=== PATIENT | female | born 1930 | race Caucasian/White ===

== ENCOUNTER 2017-01-18 12:07 | Emergency (ER) | payer MEDICARE, OTHER ==
[2017-01-18] MEDS ORDERED: ACETAMINOPHEN 325 MG TABLET PO ONE (13:29)
--- NOTE | 2017-01-18 13:40 | EKG REPORT ---
SEVERITY:- ABNORMAL ECG - SINUS RHYTHM LVH WITH SECONDARY REPOLARIZATION ABNORMALITY ANTERIOR Q WAVES, POSSIBLY DUE TO LVH : Confirmed by: William Carrington 18-Jan-2017 13:40:25
[2017-01-18 14:57] LABS: ABSOLUTE EOSINOPHILS # (AUTO) 0.2 10^3/uL (0.0-0.6); ABSOLUTE LYMPHOCYTES (AUTO) 1.3 10^3/uL (0.5-4.7); ABSOLUTE MONOCYTES (AUTO) 0.6 10^3/uL (0.1-1.4); BASOPHILS % (AUTO) 0.3 % (0-2); EOSINOPHILS % (AUTO) 3.3 % (0-6); HEMATOCRIT 36.9 % (36.0-47.0); HEMOGLOBIN 12.3 g/dL (12.0-15.5); LYMPHOCYTES % (AUTO) 18.6 % (13-45); MEAN CORPUSCULAR HEMOGLOBIN 33.6 pg (27.0-33.4); MEAN CORPUSCULAR HGB CONC 33.4 g/dL (32.0-36.0); MEAN CORPUSCULAR VOLUME 101 fl (80-97); MONOCYTES % (AUTO) 7.8 % (3-13); RED BLOOD COUNT 3.66 10^6/uL (3.72-5.28); RED CELL DISTRIBUTION WIDTH 15.2 % (11.5-14.0); WHITE BLOOD COUNT 7.2 10^3/uL (4.0-10.5)
[2017-01-18 15:00] LABS: APPEARANCE,URINE CLEAR; BILIRUBIN,URINE NEGATIVE (NEGATIVE); GLUCOSE, URINE NEGATIVE (NEGATIVE); KETONES,URINE NEGATIVE (NEGATIVE); LEUKOCYTE ESTERASE,URINE TRACE (NEGATIVE); NITRITE,URINE POSITIVE (NEGATIVE); PROTEIN,URINE 100 mg/dL (NEGATIVE); URINE SPECIFIC GRAVITY 1.006; UROBILINOGEN,URINE NEGATIVE mg/dL (<2.0)
[2017-01-18 15:20] LABS: ALANINE AMINOTRANSFERASE 28 U/L (9-52); ALBUMIN 3.4 g/dL (3.5-5.0); ALKALINE PHOSPHATASE 167 U/L (38-126); ANION GAP 6 (5-19); ASPARTATE AMINO TRANSFERASE 40 U/L (14-36); BILIRUBIN,DIRECT 0.6 mg/dL (0.0-0.4); BILIRUBIN,TOTAL 0.8 mg/dL (0.2-1.3); BLOOD UREA NITROGEN 20 mg/dL (7-20); CALCIUM 9.2 mg/dL (8.4-10.2); CARBON DIOXIDE 30 mmol/L (22-30); CHLORIDE 97 mmol/L (98-107); CREATININE RESULT 0.79 mg/dL (0.52-1.25); GLUCOSE 103 mg/dL (75-110); LIPASE 208.1 U/L (23-300); POTASSIUM 4.4 mmol/L (3.6-5.0); SODIUM 133.4 mmol/L (137-145); TOTAL PROTEIN 7.1 g/dL (6.3-8.2)
[2017-01-18] MEDS ORDERED: OXYCODONE-ACETAMINOPHEN 5-325 MG TABLET PO ONE (15:23)
[2017-01-18 15:39] LABS: TROPONIN I < 0.012 ng/mL
[2017-01-18] MEDS ORDERED: NITROFURANTOIN MONOHYD/M-CRYST 100 MG CAPSULE PO ONE (17:02)
--- NOTE | 2017-01-18 17:08 | ER Document Report ---
ED GI/ - General Chief Complaint: Abdominal Pain >50 Stated Complaint: ABDOMINAL/BACK PAIN Time Seen by Provider: 01/18/17 12:57 Notes: Patient is complaining of pain from her waist down to her pelvis this morning. It's much worse in the back and very little in the front of her abdomen. She says that she is able to ambulate if she doesn't slowly and doesn't try to bend over. She usually uses a walker or a cane to ambulate. Patient does not recall any recent unusual activity or any recent injury she's not had any vomiting or diarrhea. She had her most recent bowel movement this morning. She has had some burning and discomfort with urinating and going frequently and is prone to getting UTIs. She's had some cough, but very little congestion and no shortness of breath. Feels she might have a sinus infection. TRAVEL OUTSIDE OF THE [place] IN LAST 30 DAYS: No - Related Data Allergies/Adverse Reactions: ciprofloxacin [From Cipro] Allergy (Verified 01/19/13 09:33) Diarrhea ciprofloxacin HCl [From Cipro] Allergy (Verified 01/19/13 09:33) Diarrhea Sulfa (Sulfonamide Antibiotics) Allergy (Verified 01/19/13 09:33) Diarrhea sulfamethoxazole [From Septra] Allergy (Verified 01/19/13 09:34) Diarrhea trimethoprim [From Septra] Allergy (Verified 01/19/13 09:33) Diarrhea Past Medical History - Social History Smoking Status: Unknown if Ever Smoked Cigarette use (# per day): No Family History: Reviewed & Not Pertinent - Past Medical History Cardiac Medical History: Reports: Hx Hypercholesterolemia, Hx Hypertension - on meds Endocrine Medical History: Reports: Hx Diabetes Mellitus Type 2 - "borderline", Hx Hypothyroidism Malignancy Medical History: Reports: Hx Colorectal Cancer, Hx Lung Cancer GI Medical History: Reports: Hx Gastroesophageal Reflux Disease Musculoskeltal Medical History: 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 Had surgery and "cement" put in her pelvis., Other - Surgery for lung cancer. Surgery for colon cancer.. Denies: Hx Pacemaker - Immunizations Hx Diphtheria, Pertussis, Tetanus Vaccination: No Hx Pneumococcal Vaccination: 11/03/11 Review of Systems - Review of Systems Notes: REVIEW OF SYSTEMS: CONSTITUTIONAL : Denies fever. EENT: Denies eye, ear, nose or mouth or throat pain or other symptoms. CARDIOVASCULAR: Denies chest pain. RESPIRATORY: Denies cough, chest congestion, or shortness of breath. GASTROINTESTINAL: Denies abdominal pain or nausea, vomiting, or diarrhea. GENITOURINARY: Has had painful urinating, urinary frequency, but no blood in urine. MUSCULOSKELETAL: Denies back or neck pain. Denies joint pain or swelling. Patient points to the upper left buttock area as the primary location of the pain that she is experiencing and here to be seen for. SKIN: Denies rash or skin lesions. NEUROLOGICAL: Denies LOC or altered mental status. Denies headache. Denies sensory loss or motor deficits. ALL OTHER SYSTEMS REVIEWED AND NEGATIVE. Physical Exam - Vital signs Vitals: Temp Pulse Resp BP Pulse Ox 97.8 F 63 16 207/71 H 96 01/18/17 12:10 01/18/17 12:10 01/18/17 12:10 01/18/17 12:10 01/18/17 12:10 Interpretation: Hypertensive - Notes Notes: PHYSICAL EXAMINATION: GENERAL: Well-appearing, in no acute distress. HEAD: Atraumatic, normocephalic. EYES: Pupils equal round and reactive to light, extraocular movements intact. ENT: oropharynx clear without exudates. Moist mucous membranes. NECK: Normal range of motion, supple. LUNGS: Breath sounds clear and equal bilaterally. HEART: Regular rate and rhythm without murmurs. ABDOMEN: Soft, nontender. No guarding or rebound. No masses felt. No bruits heard. BACK: Patient's primary point of pain is in the superior aspect of the left buttock. EXTREMITIES: Normal range of motion without pain. NEUROLOGICAL: Normal speech, normal gait. Normal sensory, motor, and reflex exams. Awake, alert, and oriented x3. Cranial nerves normal. Patient is able to stand at the bedside and ambulate slowly without difficulty. She may appear to be slightly unsteady on her feet, but does not fall. PSYCH: Normal mood, normal affect. SKIN: Warm, dry, no rashes. Course - Re-evaluation Re-evalutation: 01/18/17 19:31 Labs are all normal except for a urinalysis which mostly patient could have a UTI. I don't think that's why she's having her pain because her pain is actually in the upper left buttock. It's not. In the flank regions where the kidneys are located. She has absolutely no pain or tenderness in the anterior portion of her body. - Vital Signs Vital signs: Temp Pulse Resp BP Pulse Ox 97.9 F 84 20 137/86 H 97 01/18/17 17:20 01/18/17 17:20 01/18/17 17:20 01/18/17 17:20 01/18/17 17:20 - Laboratory Result Diagrams: 01/18/17 14:35 01/18/17 14:35 Laboratory results interpreted by me: 01/18/17 01/18/17 01/18/17 14:12 14:35 14:35 RBC 3.66 L MCV 101 H MCH 33.6 H RDW 15.2 H Sodium 133.4 L Chloride 97 L Direct Bilirubin 0.6 H AST 40 H Alkaline Phosphatase 167 H Albumin 3.4 L Urine Protein 100 H Urine Nitrite POSITIVE H Ur Leukocyte Esterase TRACE H - Diagnostic Test Radiology reviewed: Image reviewed, Reports reviewed - CT of the abdomen and pelvis does not show any acute abnormalities. There is evidence of previous surgical procedures and apparent kyphoplasty in the pelvic region. No acute process is noted. Discharge - Discharge Clinical Impression: Back pain Qualifiers: Back pain location: low back pain Chronicity: chronic Back pain laterality: left Sciatica presence: without sciatica Qualified Code(s): M54.5 - Low back pain UTI (urinary tract infection) Qualifiers: Urinary tract infection type: site unspecified Hematuria presence: without hematuria Qualified Code(s): N39.0 - Urinary tract infection, site not specified Condition: Stable Disposition: HOME, SELF-CARE Additional Instructions: LOW BACK PAIN: Three out of every four people will have an episode of disabling back pain during their lifetime. Most commonly the pain is due to straining of the muscles and ligaments in the low back. Usual treatment includes: (1) Rest on a firm surface. Avoid lying on your stomach. (2) Ice pack the painful area. After a few days, gentle heat may be used intermittently to relax the area, or ice packs can be continued. (3) Medication may be needed -- muscle relaxers and antiinflammatory medicines are commonly used. (4) As the back improves, exercises are prescribed to strengthen the back and abdominal muscles. Your doctor will advise you on the proper care for your back at each stage in your recovery. You may be better in a few days -- or healing may take several weeks. If new symptoms of a "herniated disc" (radiation of pain, numbness, or tingling down the back of the leg or weakness in the leg) occur, you should be re-examined. Further testing may be necessary. URINARY TRACT INFECTION: Your evaluation indicates that you have a urinary tract infection. This is due to germs growing in the bladder. This is a common problem. This infection usually responds quickly to antibiotics. Your antibiotic should be taken exactly as prescribed. Drink plenty of fluids -- three to four quarts a day. Occasionally, a bladder anesthetic will be prescribed to help stop the feeling of urgency until the antibiotic has a chance to clear the infection. This may cause your urine to be dark orange. Certain urine infections require a culture. If the doctor obtained a culture, the results will be back in two days. You should call to see if a change in treatment is needed. A repeat urinalysis after you finish treatment is often recommended. The physician will let you know if further testing is required. Call the doctor if you develop fever, chills, flank pain, inability to urinate, or blood in the urine. ANTIBIOTIC THERAPY: You have been given an antibiotic prescription. It's important that you take all the medication, unless instructed otherwise by your physician. Failure to complete the entire course can result in relapse of your condition. Common side effects of antibiotics include nausea, intestinal cramping, or diarrhea. Women may develop vaginal yeast infections, and babies can get yeast (thrush) in the mouth following the use of antibiotics. Contact your physician if you develop significant side effects from this medication. Allergy to this antibiotic can result in hives, wheezing, faintness, or itching. If symptoms of allergy occur, stop the medication and call the doctor. NITROFURANTOIN (MACRODANTIN, MACROBID): You have received a prescription for nitrofurantoin (Macrodantin). This antibiotic is used for urinary tract infections. Women who are or nursing should notify the physician before taking this medicine. If you have ever had a problem caused by this medication in the past, be sure the physician is aware of it. Common side effects of this medicine include nausea, vomiting, or decreased appetite. Notify your physician if these side effects become severe. Immediately stop this medicine and call the physician if you develop cough , shortness of breath, chest pain, weakness, jaundice (yellow color of the skin and whites of the eyes), or a skin rash. You may take Aleve, ibuprofen, Motrin, etc. along with Tylenol. If that doesn' t relieve your pain, I prescribed a few Percocets for you to take for the worst pain. ORAL NARCOTIC MEDICATION: You have been given a prescription for pain control. This medication is a narcotic. It's best taken with food, as nausea can result if taken on an empty stomach. Don't operate machinery or drive within six hours of taking this medication. Do not combine this medicine with alcohol, or with any medication which can cause sedation (such as cold tablets or sleeping pills) unless you get permission from the physician. Narcotics tend to cause constipation. If possible, drink plenty of fluids and eat a diet high in fiber and fruits. FOLLOW-UP CARE: If you have been referred to a physician for follow-up care, call the physician s office for an appointment as you were instructed or within the next two days. If you experience worsening or a significant change in your symptoms, notify the physician immediately or return to the Emergency Department at any time for re-evaluation. Follow-up with your Dr. Mccarty on Saturday if you're not feeling better and improved. Return at any time to be reevaluated if you have new or worsening symptoms such as fever, abdominal pain, loss of use of either leg, etc. Prescriptions: Oxycodone HCl/Acetaminophen [Percocet 5-325 mg Tablet] 1 tab PO Q6HP PRN #10 tablet PRN Reason: Nitrofurantoin/Nitrofuran Mac [Macrobid 100 mg Capsule] 1 tab PO BID #14 capsule Referrals: JUVENTINO MCCARTY MD [Primary Care Provider] - Follow up as needed
[2017-01-18 19:24] VITALS: BP 137/86
== END 2017-01-18 17:20 | disposition home or self-care (01) ==
LOC: ER 12:07
DX: N39.0 Urinary tract infection, site not specified (principal); M54.5 Low back pain; M25.552 Pain in left hip; R30.0 Dysuria; R35.0 Frequency of micturition; I10 Essential (primary) hypertension; Z88.1 Allergy status to other antibiotic agents; Z88.2 Allergy status to sulfonamides
CPT/HCPCS: 93005; 99285; 36415; 87086; 82553; 83690; 85025; 87088; 80053; 81001; 84484; 87186; 71020; 74176; 93010; A9270 ×3; J8499

== ENCOUNTER 2017-01-20 22:33 | Emergency (ER) | payer MEDICARE, OTHER ==
[2017-01-20] MEDS ORDERED: MORPHINE SULFATE 10 MG/ML INJ IV ONE (23:58)
--- NOTE | 2017-01-20 23:59 | ER Document Report ---
ED GI/ - General Chief Complaint: Flank Pain Stated Complaint: BACK PAIN,FLANK PAIN Time Seen by Provider: 01/20/17 23:39 Notes: Patient is an 86-year-old female that comes emergency department for chief complaint of pain in her lower back. He was evaluated for this 2 days ago, provided with Bactrim antibiotic and pain medication, she states that she was feeling better yesterday but today started feeling worse again and now has sharp pains in her lower back on both sides. She denies fever, vomiting, chills , difficulty breathing, cough, fall injury, or other acute abnormality. Past medical history of hypertension, hyperlipidemia, type II diabetes, hypothyroidism. She lives at home with her son. TRAVEL OUTSIDE OF THE [place] IN LAST 30 DAYS: No - Related Data Allergies/Adverse Reactions: ciprofloxacin [From Cipro] Allergy (Verified 01/20/17 23:15) Diarrhea ciprofloxacin HCl [From Cipro] Allergy (Verified 01/20/17 23:15) Diarrhea Sulfa (Sulfonamide Antibiotics) Allergy (Verified 01/20/17 23:15) Diarrhea sulfamethoxazole [From Septra] Allergy (Verified 01/20/17 23:15) Diarrhea trimethoprim [From Septra] Allergy (Verified 01/20/17 23:15) Diarrhea Past Medical History - General Information source: Patient - Social History Smoking Status: Never Smoker Frequency of alcohol use: None Drug Abuse: None Lives with: Family Family History: Reviewed & Not Pertinent Patient has suicidal ideation: No Patient has homicidal ideation: No - Past Medical History Cardiac Medical History: Reports: Hx Hypercholesterolemia, Hx Hypertension - on meds Denies: Hx Coronary Artery Disease, Hx Heart Attack Pulmonary Medical History: Denies: Hx Asthma, Hx Bronchitis, Hx COPD, Hx Pneumonia, Hx Tuberculosis Neurological Medical History: Denies: Hx Cerebrovascular Accident, Hx Seizures Endocrine Medical History: Reports: Hx Diabetes Mellitus Type 2 - "borderline", Hx Hypothyroidism Renal/ Medical History: Denies: Hx Peritoneal Dialysis Malignancy Medical History: Reports: Hx Colorectal Cancer, Hx Lung Cancer GI Medical History: Reports: Hx Gastroesophageal Reflux Disease Musculoskeltal Medical History: 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 Had surgery and "cement" put in her pelvis., Other - Surgery for lung cancer. Surgery for colon cancer.. Denies: Hx Pacemaker - Immunizations Hx Diphtheria, Pertussis, Tetanus Vaccination: No Hx Pneumococcal Vaccination: 11/03/11 Review of Systems - Review of Systems Constitutional: No symptoms reported EENT: No symptoms reported Cardiovascular: No symptoms reported Respiratory: No symptoms reported Gastrointestinal: See HPI Genitourinary: See HPI Female Genitourinary: No symptoms reported Musculoskeletal: See HPI Skin: No symptoms reported Hematologic/Lymphatic: No symptoms reported Neurological/Psychological: No symptoms reported Physical Exam - Vital signs Vitals: Temp Pulse Resp BP Pulse Ox 97.6 F 58 L 16 136/66 H 92 01/20/17 23:14 01/20/17 23:14 01/20/17 23:14 01/20/17 23:14 01/20/17 23:14 Interpretation: Normal - General General appearance: Appears well In distress: None - Patient alert and well-appearing - HEENT Head: Normocephalic, Atraumatic Eyes: Normal Pupils: PERRL - Respiratory Respiratory status: No respiratory distress Chest status: Nontender Breath sounds: Normal Chest palpation: Normal - Cardiovascular Rhythm: Regular Heart sounds: Normal auscultation, S1 appreciated, S2 appreciated Murmur: Yes - Abdominal Inspection: Normal Distension: No distension Bowel sounds: Normal Tenderness: Nontender. No: Tender - No abdominal tenderness noted on my exam Organomegaly: No organomegaly - Back Back: Tender - Very mild generalized lower lumbar tenderness, no midline tenderness, patient ambulates without significant difficulty, normal distal neurovascular exam. No: CVA tenderness - No CVA tenderness - Extremities General upper extremity: Normal inspection, Nontender, Normal color, Normal ROM , Normal temperature General lower extremity: Normal inspection, Nontender, Normal color, Normal ROM , Normal temperature, Normal weight bearing. No: Mario Alberto's sign - Neurological Neuro grossly intact: Yes Cognition: Normal Orientation: AAOx4 [place] Coma Scale Eye Opening: Spontaneous Ai Coma Scale Verbal: Oriented Ai Coma Scale Motor: Obeys Commands [place] Coma Scale Total: 15 Speech: Normal Motor strength normal: LUE, RUE, LLE, RLE Sensory: Normal - Psychological Associated symptoms: Normal affect, Normal mood - Skin Skin Temperature: Warm Skin Moisture: Dry Skin Color: Normal Course - Re-evaluation Re-evalutation: Patient had an unremarkable CAT scan within the past 48 hours. Urinalysis shows worsening urinary tract infection despite patient taking Macrobid. No leukocytosis, no fever, no hypotension or tachycardia. Patient is well appearing on exam. Given a dose of Rocephin. Starting on Keflex, another urine culture placed. Mild hyponatremia, patient was given some normal saline while she was here. No dizziness, no current symptoms on reevaluation. Discussed with patient and son, they state that they will follow-up with both primary care and ask for urology referral, discussed return precautions in detail, patient states she is ready to go home. Patient and son state understanding and agreement with plan. - Vital Signs Vital signs: Temp Pulse Resp BP Pulse Ox 98.2 F 62 16 132/74 H 94 01/21/17 04:10 01/21/17 04:10 01/21/17 04:10 01/21/17 04:10 01/21/17 04:10 - Laboratory Result Diagrams: 01/21/17 00:34 01/21/17 00:34 Laboratory results interpreted by me: 01/21/17 01/21/17 01/21/17 00:10 00:34 00:34 RBC 3.69 L MCV 98 H MCH 33.7 H RDW 14.9 H Seg Neutrophils % 79.9 H Lymphocytes % 10.2 L Sodium 128.0 L Chloride 91 L BUN 25 H Glucose 122 H Direct Bilirubin 0.5 H Alkaline Phosphatase 142 H Albumin 3.4 L Urine Protein >=500 H Urine Nitrite POSITIVE H Ur Leukocyte Esterase LARGE H Urine Ascorbic Acid 40 H Discharge - Discharge Clinical Impression: Flank pain, Urinary tract infection Condition: Stable Disposition: HOME, SELF-CARE Additional Instructions: Your urinary tract infection has worsened, you have been given a dose of Rocephin tonight, please take the Keflex antibiotics instead of the current Macrobid antibiotic, take to completion. Please follow-up with your primary care this week for recheck. Your sodium level was slightly low today, this has also been treated today, have this rechecked as well. Return immediately if you worsen in anyway including vomiting, fever, worsening pain, or any other concerning symptoms. Prescriptions: Cephalexin Monohydrate [Keflex 500 mg Capsule] 500 mg PO BID #14 capsule Referrals: JUVENTINO MCCARTY MD [Primary Care Provider] - Follow up as needed
[2017-01-21 00:40] LABS: APPEARANCE,URINE SLIGHTLY-CLOUDY; BILIRUBIN,URINE NEGATIVE (NEGATIVE); GLUCOSE, URINE NEGATIVE (NEGATIVE); KETONES,URINE NEGATIVE (NEGATIVE); LEUKOCYTE ESTERASE,URINE LARGE (NEGATIVE); NITRITE,URINE POSITIVE (NEGATIVE); PROTEIN,URINE >=500 mg/dL (NEGATIVE); URINE SPECIFIC GRAVITY 1.011; UROBILINOGEN,URINE NEGATIVE mg/dL (<2.0)
[2017-01-21] MEDS ORDERED: CEFTRIAXONE 1 GM/D5W RTU 50 ML IV ONE (00:44)
[2017-01-21 00:46] LABS: ABSOLUTE EOSINOPHILS # (AUTO) 0.1 10^3/uL (0.0-0.6); ABSOLUTE LYMPHOCYTES (AUTO) 0.8 10^3/uL (0.5-4.7); ABSOLUTE MONOCYTES (AUTO) 0.7 10^3/uL (0.1-1.4); ABSOLUTE NEUT (AUTO) 6.6 10^3/uL (1.7-8.2); BASOPHILS % (AUTO) 0.3 % (0-2); EOSINOPHILS % (AUTO) 0.8 % (0-6); HEMATOCRIT 36.3 % (36.0-47.0); HEMOGLOBIN 12.4 g/dL (12.0-15.5); HGB HCT DIFFERENCE 0.9; LYMPHOCYTES % (AUTO) 10.2 % (13-45); MEAN CORPUSCULAR HEMOGLOBIN 33.7 pg (27.0-33.4); MEAN CORPUSCULAR HGB CONC 34.2 g/dL (32.0-36.0); MEAN CORPUSCULAR VOLUME 98 fl (80-97); MONOCYTES % (AUTO) 8.8 % (3-13); RED BLOOD COUNT 3.69 10^6/uL (3.72-5.28); RED CELL DISTRIBUTION WIDTH 14.9 % (11.5-14.0); SEGMENTED NEUTROPHILS % (AUTO) 79.9 % (42-78); WHITE BLOOD COUNT 8.3 10^3/uL (4.0-10.5)
[2017-01-21 01:05] LABS: ALANINE AMINOTRANSFERASE 31 U/L (9-52); ALBUMIN 3.4 g/dL (3.5-5.0); ALKALINE PHOSPHATASE 142 U/L (38-126); ANION GAP 8 (5-19); ASPARTATE AMINO TRANSFERASE 36 U/L (14-36); BILIRUBIN,DIRECT 0.5 mg/dL (0.0-0.4); BILIRUBIN,TOTAL 0.8 mg/dL (0.2-1.3); BLOOD UREA NITROGEN 25 mg/dL (7-20); CALCIUM 9.5 mg/dL (8.4-10.2); CARBON DIOXIDE 29 mmol/L (22-30); CHLORIDE 91 mmol/L (98-107); CREATININE RESULT 0.86 mg/dL (0.52-1.25); GLUCOSE 122 mg/dL (75-110); POTASSIUM 4.4 mmol/L (3.6-5.0); TOTAL PROTEIN 6.9 g/dL (6.3-8.2)
[2017-01-21] MEDS ORDERED: NORMAL SALINE 1000 ML 500 ML IV ONE (01:14)
[2017-01-21 04:51] VITALS: BP 132/74
== END 2017-01-21 04:10 | disposition home or self-care (01) ==
LOC: ER 22:33
DX: N39.0 Urinary tract infection, site not specified (principal); M54.5 Low back pain; E87.1 Hypo-osmolality and hyponatremia; I10 Essential (primary) hypertension; E11.9 Type 2 diabetes mellitus without complications; Z88.1 Allergy status to other antibiotic agents; Z88.2 Allergy status to sulfonamides; Z85.048 Personal history of other malignant neoplasm of rectum, rectosigmoid junction, and anus; Z85.118 Personal history of other malignant neoplasm of bronchus and lung
CPT/HCPCS: 99284; 96375; 96365; 36415; 87086; 85025; 87088; 80053; 81001; 87186; J2270; J7030; J0696

== ENCOUNTER 2017-01-23 17:06 | Emergency (ER) | payer MEDICARE, OTHER ==
[2017-01-24 13:59] LABS: APPEARANCE,URINE SLIGHTLY-CLOUDY; BILIRUBIN,URINE NEGATIVE (NEGATIVE); GLUCOSE, URINE NEGATIVE (NEGATIVE); KETONES,URINE NEGATIVE (NEGATIVE); LEUKOCYTE ESTERASE,URINE LARGE (NEGATIVE); NITRITE,URINE NEGATIVE (NEGATIVE); PROTEIN,URINE 100 mg/dL (NEGATIVE); URINE SPECIFIC GRAVITY 1.008; UROBILINOGEN,URINE NEGATIVE mg/dL (<2.0)
== END 2017-01-23 19:19 | disposition left against medical advice (07) ==
LOC: ER 17:06
DX: Z53.21 Procedure and treatment not carried out due to patient leaving prior to being seen by health care provider (principal)
CPT/HCPCS: 81001

== ENCOUNTER 2017-01-28 06:44 | Emergency (ER) | payer MEDICARE, OTHER ==
[2017-01-28 07:31] LABS: ABSOLUTE EOSINOPHILS # (AUTO) 0.2 10^3/uL (0.0-0.6); ABSOLUTE LYMPHOCYTES (AUTO) 0.6 10^3/uL (0.5-4.7); ABSOLUTE NEUT (AUTO) 5.8 10^3/uL (1.7-8.2); BASOPHILS % (AUTO) 0.3 % (0-2); EOSINOPHILS % (AUTO) 2.5 % (0-6); HEMATOCRIT 36.2 % (36.0-47.0); HEMOGLOBIN 12.2 g/dL (12.0-15.5); HGB HCT DIFFERENCE 0.4; LYMPHOCYTES % (AUTO) 8.4 % (13-45); MEAN CORPUSCULAR HEMOGLOBIN 33.7 pg (27.0-33.4); MEAN CORPUSCULAR HGB CONC 33.8 g/dL (32.0-36.0); MEAN CORPUSCULAR VOLUME 100 fl (80-97); MONOCYTES % (AUTO) 13.1 % (3-13); RED BLOOD COUNT 3.63 10^6/uL (3.72-5.28); RED CELL DISTRIBUTION WIDTH 14.8 % (11.5-14.0); SEGMENTED NEUTROPHILS % (AUTO) 75.7 % (42-78); WHITE BLOOD COUNT 7.7 10^3/uL (4.0-10.5)
[2017-01-28] MEDS ORDERED: HYDROCODONE/ACETAMINOPHEN 5-325 MG TABLET PO ONE (07:31)
[2017-01-28 07:44] LABS: ALANINE AMINOTRANSFERASE 29 U/L (9-52); ALBUMIN 3.2 g/dL (3.5-5.0); ALKALINE PHOSPHATASE 148 U/L (38-126); ANION GAP 6 (5-19); ASPARTATE AMINO TRANSFERASE 36 U/L (14-36); BILIRUBIN,DIRECT 0.5 mg/dL (0.0-0.4); BILIRUBIN,TOTAL 0.7 mg/dL (0.2-1.3); BLOOD UREA NITROGEN 20 mg/dL (7-20); CALCIUM 9.1 mg/dL (8.4-10.2); CARBON DIOXIDE 31 mmol/L (22-30); CHLORIDE 93 mmol/L (98-107); CREATININE RESULT 0.89 mg/dL (0.52-1.25); GLUCOSE 109 mg/dL (75-110); POTASSIUM 4.7 mmol/L (3.6-5.0); TOTAL PROTEIN 6.6 g/dL (6.3-8.2)
--- NOTE | 2017-01-28 08:08 | ER Document Report ---
ED General - General Chief Complaint: Low Back Pain Stated Complaint: LOWER BACK PAIN Time Seen by Provider: 01/28/17 06:46 Mode of Arrival: Ambulatory Information source: Patient Notes: 86-year-old female with history of multiple visits in the past 2 weeks for low back pain presents with complaints of low back pain. Family notes that her back pain in the past 2 weeks has been related to a urinary tract infection which has been treated with multiple antibiotics and appeared to have been under control, however yesterday patient bent over to moss picker a heavy calculator and her back pain started again. Patient notes it is in the lumbar region is tender to palpation hurts with movement. Denies any neurological deficits. Denies any abdominal pain TRAVEL OUTSIDE OF THE [place] IN LAST 30 DAYS: No - HPI Onset: Yesterday Onset/Duration: Sudden Quality of pain: Achy Severity: Mild Pain Level: 1 Associated symptoms: Body/muscle aches Exacerbated by: Movement Relieved by: Denies Similar symptoms previously: Yes Recently seen / treated by doctor: Yes - Related Data Allergies/Adverse Reactions: ciprofloxacin [From Cipro] Allergy (Verified 01/20/17 23:15) Diarrhea ciprofloxacin HCl [From Cipro] Allergy (Verified 01/20/17 23:15) Diarrhea Sulfa (Sulfonamide Antibiotics) Allergy (Verified 01/20/17 23:15) Diarrhea sulfamethoxazole [From Septra] Allergy (Verified 01/20/17 23:15) Diarrhea trimethoprim [From Septra] Allergy (Verified 01/20/17 23:15) Diarrhea Past Medical History - Social History Smoking Status: Never Smoker Cigarette use (# per day): No Chew tobacco use (# tins/day): No Smoking Education Provided: No Frequency of alcohol use: None Drug Abuse: None Family History: Reviewed & Not Pertinent - Past Medical History Cardiac Medical History: Reports: Hx Hypercholesterolemia, Hx Hypertension - on meds Denies: Hx Coronary Artery Disease, Hx Heart Attack Pulmonary Medical History: Denies: Hx Asthma, Hx Bronchitis, Hx COPD, Hx Pneumonia, Hx Tuberculosis Neurological Medical History: Denies: Hx Cerebrovascular Accident, Hx Seizures Endocrine Medical History: Reports: Hx Diabetes Mellitus Type 2 - "borderline", Hx Hypothyroidism Renal/ Medical History: Denies: Hx Peritoneal Dialysis Malignancy Medical History: Reports: Hx Colorectal Cancer, Hx Lung Cancer GI Medical History: Reports: Hx Gastroesophageal Reflux Disease Musculoskeltal Medical History: 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 Had surgery and "cement" put in her pelvis., Other - Surgery for lung cancer. Surgery for colon cancer.. Denies: Hx Pacemaker - Immunizations Hx Diphtheria, Pertussis, Tetanus Vaccination: No Hx Pneumococcal Vaccination: 11/03/11 Review of Systems - Review of Systems Notes: PHYSICAL EXAMINATION: GENERAL: Well-appearing, well-nourished and in no acute distress. HEAD: Atraumatic, normocephalic. EYES: Pupils equal round and reactive to light, extraocular movements intact, conjunctiva are normal. ENT: Nares patent, oropharynx clear without exudates. Moist mucous membranes. NECK: Normal range of motion, supple without lymphadenopathy LUNGS: Breath sounds clear to auscultation bilaterally and equal. No wheezes rales or rhonchi. HEART: Regular rate and rhythm without murmurs ABDOMEN: Soft, nontender, nondistended abdomen. No guarding, no rebound. No masses appreciated. Female : deferred Musculoskeletal: Limited range of motion secondary to pain, tenderness in the L2 to L3 region no deformity NEUROLOGICAL: Cranial nerves grossly intact. Normal speech, normal gait. Normal sensory, motor exams PSYCH: Normal mood, normal affect. SKIN: Warm, Dry, normal turgor, no rashes or lesions noted. Physical Exam - Vital signs Vitals: Temp Pulse Resp BP Pulse Ox 97.5 F 57 L 16 167/85 H 95 01/28/17 06:58 01/28/17 06:58 01/28/17 06:58 01/28/17 06:58 01/28/17 06:58 Course - Re-evaluation Re-evalutation: 01/28/17 08:08 I do not expect any life-threatening issues given the chronicity of pain exacerbated with movement, CT has been ordered to rule out a dissection or fracture No cauda equina concerns noted by patient 01/28/17 09:26 CT is consistent with a L1 wedge fracture, this would explain the patient's pain the family. They will follow-up with the previous orthopedic surgeon who did her previous kyphoplasty After performing a Medical Screening Examination, I estimate there is LOW risk for EXPANDING OR RUPTURED ABDOMINAL AORTIC ANEURYSM, CAUDA EQUINA SYNDROME, EPIDURAL MASS LESION, or HERNIATED DISK CAUSING SEVERE SPINAL STENOSIS, thus I consider the discharge disposition reasonable. I have reevaluated this patient multiple times and no significant life threatening changes are noted. The patient and I have discussed the diagnosis and risks, and we agree with discharging home and close follow-up. We also discussed returning to the Emergency Department immediately if new or worsening symptoms occur with the understanding that symptoms and presentations can change. We have discussed the symptoms which are most concerning (e.g., saddle anesthesia, urinary or bowel incontinence or retention, changing or worsening pain) that necessitate immediate return. - Vital Signs Vital signs: Temp Pulse Resp BP Pulse Ox 97.5 F 57 L 16 167/85 H 95 01/28/17 06:58 01/28/17 06:58 01/28/17 06:58 01/28/17 06:58 01/28/17 06:58 - Laboratory Result Diagrams: 01/28/17 07:16 01/28/17 07:16 Laboratory results interpreted by me: 01/28/17 01/28/17 07:16 07:16 RBC 3.63 L MCV 100 H MCH 33.7 H RDW 14.8 H Lymphocytes % 8.4 L Monocytes % 13.1 H Sodium 130.0 L Chloride 93 L Carbon Dioxide 31 H Direct Bilirubin 0.5 H Alkaline Phosphatase 148 H Albumin 3.2 L - Diagnostic Test Radiology reviewed: Image reviewed, Reports reviewed - L1 compression fracture Discharge - Discharge Clinical Impression: Compression fracture of L1 lumbar vertebra Qualifiers: Encounter type: initial encounter Fracture type: closed Qualified Code(s): S32.010A - Wedge compression fracture of first lumbar vertebra, initial encounter for closed fracture Back pain Qualifiers: Back pain location: low back pain Chronicity: acute Back pain laterality: midline Sciatica presence: without sciatica Qualified Code(s): M54.5 - Low back pain Condition: Stable Disposition: HOME, SELF-CARE Instructions: Compression Fracture of the Spine ([facility]) Additional Instructions: Follow up with your physician tomorrow for further care or return to the ED IMMEDIATELY if symptoms worsen or new concerns occur. If you cannot afford to follow up with your primary care physician a list of low cost clinics have been provided at the end of your discharge papers as well. Prescriptions: Oxycodone HCl/Acetaminophen [Percocet 10-325 Mg Tablet] 1 each PO Q6 #30 tablet
[2017-01-28] MEDS ORDERED: OXYCODONE-ACETAMINOPHEN 5-325 MG TABLET PO ONE (09:26)
[2017-01-28 09:37] LABS: APPEARANCE,URINE CLEAR; BILIRUBIN,URINE NEGATIVE (NEGATIVE); GLUCOSE, URINE NEGATIVE (NEGATIVE); KETONES,URINE NEGATIVE (NEGATIVE); LEUKOCYTE ESTERASE,URINE LARGE (NEGATIVE); NITRITE,URINE NEGATIVE (NEGATIVE); PROTEIN,URINE 100 mg/dL (NEGATIVE); UROBILINOGEN,URINE NEGATIVE mg/dL (<2.0)
[2017-01-28 09:39] LABS: URINE SPECIFIC GRAVITY 1.003
[2017-01-28 09:58] VITALS: BP 208/86
== END 2017-01-28 09:50 | disposition home or self-care (01) ==
LOC: ER 06:44
DX: S32.010A Wedge compression fracture of first lumbar vertebra, initial encounter for closed fracture (principal); X50.0XXA Overexertion from strenuous movement or load, initial encounter; I10 Essential (primary) hypertension; Z85.118 Personal history of other malignant neoplasm of bronchus and lung; Z85.048 Personal history of other malignant neoplasm of rectum, rectosigmoid junction, and anus; Z88.2 Allergy status to sulfonamides; Z88.1 Allergy status to other antibiotic agents
CPT/HCPCS: 99284; 36415; 87086; 85025; 87088; 80053; 81001; 74177; A9270 ×2; 87186

== ENCOUNTER → 2017-02-02 | Outpatient (CLI) | payer MEDICARE, OTHER ==
--- NOTE | 2017-02-02 17:20 | RADIOLOGY REPORT (SQ) ---
EXAM DESCRIPTION: MRI LUMBAR SPINE WITHOUT COMPLETED DATE/TIME: 02/02/2017 9:27 am REASON FOR STUDY: WEDGE COMPRESSION FRACTURE OF FIRST LUMBAR VERTEBRA S32.010A WEDGE COMPRESSION FR ACTURE OF FIRST LUMBAR VERTEBRA COMPARISON: Lumbar spine films 03/23/2016 CT lumbar spine 03/30/2016 CT abdomen pelvis 01/18/2017 CT abdomen pelvis 01/28/2017 TECHNIQUE: Sagittal and Axial imaging includes T1, T2, STIR and gradient echo sequences. Coronal T2/ HASTE imaging. LIMITATIONS: None. FINDINGS: VISUALIZED UPPER ABDOMEN: Limited evaluation. No acute or suspicious findings suggested. SEGMENTATION: No transitional anatomy. The lowest well-developed disc space is labeled L5-S1. ALIGNMENT: Mild grade 1 anterolisthesis of L4 over L5 VERTEBRAE: Greater than 50% loss of height at L1. BONE MARROW: Mild marrow edema in the L1 vertebral body DISC SIGNAL: Diffuse decreased T2 weighted intervertebral disc signal POSTERIOR ELEMENTS: Generally intact. No pars defect evident. HARDWARE: None in the spine. CORD AND CONUS: Normal in size and signal intensity. Conus at the mid L1 level. SOFT TISSUES: No aortic aneurysm seen. No bulky retroperitoneal adenopathy or mass. No paraspinal mas s or fluid. T10-11: At the upper edge of the field of view. No central or foraminal stenosis. Moderate facet h ypertrophy. T11-12: No central or foraminal stenosis. Mild posterior disc bulging, moderate bilateral facet hyp ertrophy. T12-L1: No central or foraminal encroachment. Mild posterior disc bulging. Mild bilateral facet an d ligament hypertrophy. L1-L2: Greater than 50% compression deformity at L1. Mild retropulsion of the posterosuperior corner of L1. Minimal posterior disc bulging and mild bilateral facet hypertrophy. There is borderline ce ntral canal narrowing. Moderate bilateral foraminal narrowing with partial effacement of the fat naeem und the exiting L1 nerve roots bilaterally. L2-L3: Mild diffuse posterior disc bulging, bulky bilateral facet and ligament hypertrophy. Borderli ne central canal narrowing best shown on axial T2 image 20. There is mild bilateral inferior foramin al narrowing without exiting L2 nerve root impingement. L3-L4: Mild diffuse posterior disc bulging and bulky bilateral facet and ligament hypertrophy cause m ild central canal stenosis, best shown on axial T2 image 26. There is moderate right and mild left f oraminal narrowing without exiting L3 nerve root impingement. L4-L5: Grade 1 anterolisthesis of L4 over L5, broad diffuse posterior disc bulging and very bulky becca ateral facet and ligament hypertrophy cause moderate central canal stenosis at L4-5. There is asymme tric flattening of the thecal sac at the takeoff of the left L5 nerve root in the lateral recess best shown on axial T2 image 32. Mild right, moderate left foraminal narrowing without definite exiting L4 nerve root impingement. L5-S1: Mild posterior disc bulging, moderate facet hypertrophy. No central or foraminal stenosis. SACRUM: Old bilateral sacroplasty, with bone cement present. OTHER: No other significant findings. IMPRESSION: Subacute L1 greater than 50% compression deformity Multilevel central and foraminal narrowing as above. TECHNICAL DOCUMENTATION: JOB ID: [id number] [employer]- All Rights Reserved
== END ==
LOC: RAD 08:00
PROVIDERS: ATTEND Student in an Organized Health Care Education/Training Program
DX: S32.010A Wedge compression fracture of first lumbar vertebra, initial encounter for closed fracture (principal); X58.XXXA Exposure to other specified factors, initial encounter
CPT/HCPCS: 72148

== ENCOUNTER → 2017-02-12 | Day surgery (SDC) | payer MEDICARE, OTHER ==
[2017-02-08 12:29] LABS: HEMATOCRIT 36.6 % (36.0-47.0); HEMOGLOBIN 12.3 g/dL (12.0-15.5); HGB HCT DIFFERENCE 0.3; MEAN CORPUSCULAR HEMOGLOBIN 33.6 pg (27.0-33.4); MEAN CORPUSCULAR HGB CONC 33.5 g/dL (32.0-36.0); MEAN CORPUSCULAR VOLUME 100 fl (80-97); PROTHROMBIN TIME 13.8 SEC (11.4-15.4); RED BLOOD COUNT 3.65 10^6/uL (3.72-5.28); RED CELL DISTRIBUTION WIDTH 15.3 % (11.5-14.0); WHITE BLOOD COUNT 7.5 10^3/uL (4.0-10.5)
--- NOTE | 2017-02-08 17:04 | EKG REPORT ---
SEVERITY:- ABNORMAL ECG - SINUS RHYTHM LEFT ANTERIOR FASCICULAR BLOCK LVH WITH SECONDARY REPOLARIZATION ABNORMALITY ANTERIOR INFARCT, AGE INDETERMINATE : Confirmed by: William Carrington 08-Feb-2017 17:03:20
[2017-02-09 12:26] LABS: APPEARANCE,URINE CLOUDY; BILIRUBIN,URINE NEGATIVE (NEGATIVE); GLUCOSE, URINE NEGATIVE (NEGATIVE); KETONES,URINE NEGATIVE (NEGATIVE); LEUKOCYTE ESTERASE,URINE LARGE (NEGATIVE); NITRITE,URINE POSITIVE (NEGATIVE); PROTEIN,URINE 100 mg/dL (NEGATIVE); UROBILINOGEN,URINE NEGATIVE mg/dL (<2.0)
[~2017-02-12] MED LIST: CEFAZOLIN 1 GM/D5W RTU 1 GM/50 ML RTUPB IV PRN; DEXMEDETOMIDINE INJ 80 MCG/20 ML VIAL IV ONE; DIPHENHYDRAMINE HCL 50 MG/ML VIAL IV PRN; FENTANYL CITRATE INJ/PF 100 MCG/2 ML AMPUL IV PRN; FENTANYL CITRATE INJ/PF 100 MCG/2 ML AMPUL ONE; KETAMINE HCL INJ 500 MG/10 ML VIAL ONE; LACTATED RINGERS 1000 ML IV PRN; LIDOCAINE 0.5% INJ-PF (5 MG/ML) 50 ML SDV SUBCUT PRN; LIDOCAINE 1% INJ-PF (10 MG/ML) 30 ML SDV ONE; MIDAZOLAM 2 MG/2 ML INJ ONE; ONDANSETRON HCL INJ/PF 4 MG/2 ML SDV IV PRN; OXYCODONE-ACETAMINOPHEN 5-325 MG TABLET PO PRN; PROPOFOL INJ 200 MG/20 ML VIAL IV ONE
[2017-02-12 06:18] VITALS: BP 176/87
[2017-02-12 08:04] LABS: APPEARANCE,URINE SLIGHTLY-CLOUDY; BILIRUBIN,URINE NEGATIVE (NEGATIVE); GLUCOSE, URINE NEGATIVE (NEGATIVE); KETONES,URINE NEGATIVE (NEGATIVE); LEUKOCYTE ESTERASE,URINE LARGE (NEGATIVE); NITRITE,URINE POSITIVE (NEGATIVE); PROTEIN,URINE 100 mg/dL (NEGATIVE); URINE SPECIFIC GRAVITY 1.006; UROBILINOGEN,URINE NEGATIVE mg/dL (<2.0)
== END ==
LOC: OROUT 05:42
PROVIDERS: ATTEND Pain Medicine Interventional Pain Medicine
DX: S32.010A Wedge compression fracture of first lumbar vertebra, initial encounter for closed fracture (principal); X58.XXXA Exposure to other specified factors, initial encounter; Z79.01 Long term (current) use of anticoagulants; Z88.1 Allergy status to other antibiotic agents
CPT/HCPCS: 93005; 36415; 87086; 82962; 85027; 85610; 85730; 81001 ×2; 93010; J0690; J2250; J2704; J3010; J3490

== ENCOUNTER 2017-02-14 09:42 | Inpatient (IN) | payer MEDICARE, OTHER ==
[2017-02-14] MEDS ORDERED: LEVALBUTEROL HCL NEB 0.63 MG/3 ML AMPUL NEB PRN (10:52)
[2017-02-14] MEDS ORDERED: NORMAL SALINE 1000 ML 1,000 ML IV PRN (10:52)
[2017-02-14] MEDS ORDERED: ONDANSETRON HCL INJ/PF 4 MG/2 ML SDV IV PRN (10:52)
[2017-02-14] MEDS ORDERED: DEXTROSE 50%-WATER SYRINGE 12.5 GM/25 ML DOSE IV PRN (10:56)
[2017-02-14] MEDS ORDERED: GLUCAGON,HUMAN RECOMB 1 MG INJ IM PRN (10:56)
[2017-02-14] MEDS ORDERED: DEXTROSE 40% GEL 15 GM TUBE X 2 PO PRN (10:56)
[2017-02-14] MEDS ORDERED: INSULIN LISPRO 100 UNIT/ML 3 ML VIAL SUBCUT PRN (10:56)
[2017-02-14] MEDS ORDERED: DEXTROSE 50%-WATER SYRINGE 25 GM/50 ML DOSE IV PRN (10:56)
[2017-02-14] MEDS ORDERED: DEXTROSE 40% GEL 15 GM TUBE PO PRN (10:56)
--- NOTE | 2017-02-14 11:18 | PDOC H&P ---
History of Present Illness Admission Date/PCP: 02/14/17 09:42 JUVENTINO MCCARTY MD Patient complains of: Persistent urinary tract infections and nausea and vomiting History of Present Illness: BRITTNEY SANDERS is a 87 year old female This is a 87-year-old female female with a history of the adenocarcinoma of the colon and a non-small carcinoma of the lung currently see a Dr. Schwartz and a polyps will every 6 month and also patient have a significant history of the sinus problems and currently saw the ENT recently have a compression fractures of the vertebra and currently see up Dr. Jaime unable to get the kyphoplasty because of the persistent infections in the urine.Patient was put on the Levaquin recently and patients complaining some nausea vomiting and not feeling wellIn patients back and forth by her son to brought to the office and at this point because of the weakness nausea vomiting and persistent infection and uncontrolled pain decided to admit in the hospital and the both patient and the son agree Patients denied any chest pain denied any shortness of the breath Past Medical History Cardiac Medical History: Reports: Hyperlipidema, Hypertension - on meds Denies: Coronary Artery Disease, Myocardial Infarction Pulmonary Medical History: Denies: Asthma, Bronchitis, Chronic Obstructive Pulmonary Disease (COPD), Pneumonia, Tuberculosis Neurological Medical History: Denies: Seizures Endocrine Medical History: Reports: Diabetes Mellitus Type 2 - "borderline", Hypothyroidism Malignancy Medical History: Reports: Colorectal Cancer, Lung Cancer GI Medical History: Reports: Gastroesophageal Reflux Disease Musculoskeltal Medical History: Reports: Arthritis - pelvis, Gout Psychiatric Medical History: Reports: Dementia Hematology: Reports: Anemia - hx of Past Surgical History Past Surgical History: Reports: Appendectomy, Cardiac Catheterization, Cholecystectomy, Hysterectomy, Orthopedic Surgery - PELVIC FX about 6 years ago. Had surgery and "cement" put in her pelvis., Other - Surgery for lung cancer. Surgery for colon cancer. Denies: Pacemaker Social History Smoking Status: Former Smoker Frequency of Alcohol Use: None Hx Recreational Drug Use: No Hx Prescription Drug Abuse: No Family History Family History: Reviewed & Not Pertinent Parental Family History Reviewed: Yes Children Family History Reviewed: Yes Sibling(s) Family History Reviewed.: Yes Medication/Allergy Home Medications: Esomeprazole Magnesium [Nexium] 40 mg PO DAILY 10/04/12 Levothyroxine Sodium [Synthroid 0.075 mg Tablet] 50 mcg PO DAILY 10/04/12 Metoprolol Tartrate [Lopressor 50 mg Tablet] 50 mg PO Q12H 10/04/12 Multivitamin [Multiple Vitamins] 1 each PO DAILY 10/04/12 [place]-3/Dha/Epa/Fish Oil [Fish Oil [place]okato-3 Softgel] 1 each PO DAILY 10/04/12 Pramipexole Di-HCl [Mirapex 0.25 mg Tablet] 0.5 mg PO BID 10/04/12 Rosuvastatin Calcium [Crestor 10 mg Tablet] 10 mg PO QHS 10/04/12 Sitagliptin Phosphate [Januvia 25 mg Tablet] 25 mg PO DAILY 10/04/12 Solifenacin Succinate [Vesicare] 5 mg PO DAILY 10/04/12 Ascorbic Acid/Collagen Hydr [Collagen Plus Vit C Capsule] 1 cap PO DAILY Calcium Carb & Citrate/Vit D3 [Calcium + D3 ER Tablet] 1 tab PO DAILY 02/08/17 Cyanocobalamin (Vitamin B-12) [Vitamin B12] 1 tab PO DAILY 02/08/17 Hydromorphone HCl [Dilaudid] 1 tab PO TID PRN 02/08/17 Levofloxacin 500 mg PO 02/12/17 Allergies/Adverse Reactions: ciprofloxacin HCl [From Cipro] Allergy (Verified 02/08/17 10:13) Diarrhea Sulfa (Sulfonamide Antibiotics) Allergy (Verified 02/08/17 10:13) Diarrhea sulfamethoxazole [From Septra] Allergy (Verified 02/08/17 10:13) Diarrhea trimethoprim [From Septra] Allergy (Verified 02/08/17 10:13) Diarrhea Review of Systems Constitutional: ABSENT: chills, fever(s), headache(s), weight gain, weight loss Eyes: ABSENT: visual disturbances Ears: ABSENT: hearing changes Cardiovascular: ABSENT: chest pain, dyspnea on exertion, edema, orthropnea, palpitations Respiratory: ABSENT: cough, hemoptysis Gastrointestinal: PRESENT: nausea, vomiting. ABSENT: abdominal pain, constipation, diarrhea, hematemesis, hematochezia Genitourinary: PRESENT: difficulty urinating, dysuria. ABSENT: hematuria Musculoskeletal: PRESENT: back pain. ABSENT: joint swelling Integumentary: ABSENT: rash, wounds Neurological: ABSENT: abnormal gait, abnormal speech, confusion, dizziness, focal weakness, syncope Psychiatric: ABSENT: anxiety, depression, homidical ideation, suicidal ideation Endocrine: ABSENT: cold intolerance, heat intolerance, menstrual abnormalities, polydipsia, polyuria Hematologic/Lymphatic: ABSENT: easy bleeding, easy bruising, lymphadenopathy Physical Exam Vital Signs: Temp Pulse Resp BP Pulse Ox 97.8 F 67 14 172/71 H 96 02/14/17 10:16 02/14/17 10:16 02/14/17 10:16 02/14/17 10:16 02/14/17 09:51 Intake & Output 02/13/17 02/14/17 02/15/17 06:59 06:59 06:59 Weight 47.65 kg General appearance: PRESENT: no acute distress, well-developed, well-nourished Head exam: PRESENT: atraumatic, normocephalic Eye exam: PRESENT: conjunctiva pink, EOMI, PERRLA. ABSENT: scleral icterus Ear exam: PRESENT: normal external ear exam Mouth exam: PRESENT: moist, tongue midline Neck exam: PRESENT: full ROM. ABSENT: carotid bruit, JVD, lymphadenopathy, thyromegaly Respiratory exam: PRESENT: clear to auscultation becca Cardiovascular exam: PRESENT: RRR. ABSENT: diastolic murmur, rubs, systolic murmur Pulses: PRESENT: normal dorsalis pedis pul, +2 pedal pulses bilateral Vascular exam: PRESENT: normal capillary refill GI/Abdominal exam: PRESENT: normal bowel sounds, soft. ABSENT: distended, guarding, mass, organolmegaly, rebound, tenderness Rectal exam: PRESENT: deferred Neurological exam: PRESENT: alert, awake, oriented to person, oriented to place , oriented to time, oriented to situation. ABSENT: motor sensory deficit Psychiatric exam: PRESENT: appropriate affect, normal mood. ABSENT: homicidal ideation, suicidal ideation Skin exam: PRESENT: dry, intact, warm. ABSENT: cyanosis, rash Assessment & Plan - Diagnosis (1) Nausea and vomiting Qualifiers: Vomiting Intractability: unspecified Is this a current diagnosis for this admission?: YesPlan: Possible medication side effect will get the CT abdomen and pelvis and IV fluid (2) Urinary tract infection Qualifiers: Urinary tract infection type: site unspecified Is this a current diagnosis for this admission?: YesPlan: We can stop the Levaquin while patient unable to tolerate it for the IV cefepime and get the another urine culture (3) Compression fracture of first lumbar vertebra Qualifiers: Encounter type: sequela Qualified Code(s): S32.010S - Wedge compression fracture of first lumbar vertebra, sequela Is this a current diagnosis for this admission?: YesPlan: Consulted Dr. Watson for further evaluation and possible kyphoplasty (4) Anemia Qualifiers: Anemia type: unspecified type Qualified Code(s): D64.9 - Anemia, unspecified Is this a current diagnosis for this admission?: YesPlan: Currently stable (5) COPD (chronic obstructive pulmonary disease) Qualifiers: Chronic bronchitis type: unspecified Is this a current diagnosis for this admission?: YesPlan: Continues to Xopenex as needed (6) GERD (gastroesophageal reflux disease) Qualifiers: Esophagitis presence: without esophagitis Qualified Code(s): K21.9 - Gastro-esophageal reflux disease without esophagitis Is this a current diagnosis for this admission?: YesPlan: Continues to PPI - Time Time Spent: 30 to 50 Minutes Medications reviewed and adjusted accordingly: Yes Anticipated discharge: SNF Within: Other - Inpatient Certification Medical Necessity: Need Close Monitoring Due to Risk of Patient Decompensation, Need For IV Fluids, Need for IV Antibiotics Post Hospital Care: D/C Cement Sack Breaker Documentation - Plan Summary Plan Summary: Very extensive discussions with the son about the patient's current conditions and the patient and discussed with the patient's about the power of transactional attorney and I think the according to the son the patient's son-in-law have a power of transactional attorney but not sure about the health power of transactional attorney but he will check with him and patient is not sure about the CODE STATUS and the patient's gait will get back with us
[2017-02-14] MEDS ORDERED: ENOXAPARIN SODIUM INJ 30 MG/0.3 ML DISP.SYRIN SUBCUT ONE (12:00)
[2017-02-14] MEDS ORDERED: CEFEPIME 1 GM/D5W RTU 1 GM/50 ML RTUPB IV ONE (12:00)
[2017-02-14 12:22] LABS: ABSOLUTE EOSINOPHILS # (AUTO) 0.1 10^3/uL (0.0-0.6); ABSOLUTE LYMPHOCYTES (AUTO) 0.9 10^3/uL (0.5-4.7); ABSOLUTE MONOCYTES (AUTO) 0.6 10^3/uL (0.1-1.4); ABSOLUTE NEUT (AUTO) 4.1 10^3/uL (1.7-8.2); BASOPHILS % (AUTO) 0.4 % (0-2); EOSINOPHILS % (AUTO) 1.1 % (0-6); HEMOGLOBIN 11.3 g/dL (12.0-15.5); HGB HCT DIFFERENCE -0.1; LYMPHOCYTES % (AUTO) 16.5 % (13-45); MEAN CORPUSCULAR HEMOGLOBIN 33.3 pg (27.0-33.4); MEAN CORPUSCULAR HGB CONC 33.3 g/dL (32.0-36.0); MEAN CORPUSCULAR VOLUME 100 fl (80-97); MONOCYTES % (AUTO) 9.8 % (3-13); RED BLOOD COUNT 3.39 10^6/uL (3.72-5.28); RED CELL DISTRIBUTION WIDTH 14.7 % (11.5-14.0); SEGMENTED NEUTROPHILS % (AUTO) 72.2 % (42-78); WHITE BLOOD COUNT 5.7 10^3/uL (4.0-10.5)
[2017-02-14 12:40] LABS: ALANINE AMINOTRANSFERASE 22 U/L (9-52); ALBUMIN 2.9 g/dL (3.5-5.0); ALKALINE PHOSPHATASE 174 U/L (38-126); ANION GAP 9 (5-19); ASPARTATE AMINO TRANSFERASE 25 U/L (14-36); BILIRUBIN,DIRECT 0.4 mg/dL (0.0-0.4); BILIRUBIN,TOTAL 0.5 mg/dL (0.2-1.3); BLOOD UREA NITROGEN 22 mg/dL (7-20); CALCIUM 8.8 mg/dL (8.4-10.2); CARBON DIOXIDE 27 mmol/L (22-30); CHLORIDE 98 mmol/L (98-107); CREATININE RESULT 1.07 mg/dL (0.52-1.25); GLUCOSE 108 mg/dL (75-110); POTASSIUM 4.1 mmol/L (3.6-5.0); SODIUM 133.6 mmol/L (137-145); TOTAL PROTEIN 5.8 g/dL (6.3-8.2)
[2017-02-14] MEDS: NORMAL SALINE 1000 ML 1,000 ML IV PRN (13:38)
--- NOTE | 2017-02-14 14:58 | RADIOLOGY REPORT (SQ) ---
EXAM DESCRIPTION: CT ABD/PELVIS NO ORAL OR IV COMPLETED DATE/TIME: 02/14/2017 12:48 pm REASON FOR STUDY: n/v N39.0 URINARY TRACT INFECTION, SITE NOT SPECIFIED R10.9 UNSPECIFIED ABDOMINA L PAIN COMPARISON: 01/18/2017 TECHNIQUE: CT scan of the abdomen and pelvis performed without intravenous or oral contrast. Images reviewed with lung, soft tissue, and bone windows. Reconstructed coronal and sagittal MPR images revi ewed. All images stored on PACS. All CT scanners at this facility use dose modulation, iterative reconstruction, and/or weight based d osing when appropriate to reduce radiation dose to as low as reasonably achievable (ALARA). [facility]: Dose Right [facility]: CareDose [facility]: Dose Right [facility]: Teradose 4D [facility]: [employer] RADIATION DOSE: 3.29mGy. LIMITATIONS: None. FINDINGS: LOWER CHEST: Hiatal hernia. NON-CONTRASTED LIVER, SPLEEN, ADRENALS: Stable left adrenal nodule. PANCREAS: No masses. No peripancreatic inflammatory changes. GALLBLADDER: Surgically absent. RIGHT KIDNEY AND URETER: No suspicious masses. Assessment limited by lack of IV contrast. No signif icant calcifications. No hydronephrosis or hydroureter. LEFT KIDNEY AND URETER: No suspicious masses. Assessment limited by lack of IV contrast. No signifi cant calcifications. No hydronephrosis or hydroureter. AORTA AND RETROPERITONEUM: No aneurysm. No retroperitoneal masses or adenopathy. BOWEL AND PERITONEAL CAVITY: Diverticulosis. No obvious masses or inflammatory changes. No free flui d. APPENDIX: Surgically absent. PELVIS, BLADDER, AND ABDOMINAL WALL:No abnormal masses. No free fluid. Bladder normal. BONES: Compression fracture L1 which is a known finding. See recent MRI of lumbar spine. OTHER: No other significant finding. IMPRESSION: 1. Compression fracture L1 which is a known finding. 2. No acute findings in the urinary tract. TECHNICAL DOCUMENTATION: JOB ID: [id number] Quality ID # [id number]: Final reports with documentation of one or more dose reduction techniques (e.g., Au tomated exposure control, adjustment of the mA and/or kV according to patient size, use of iterative reconstruction technique) 2010 [employer]- All Rights Reserved
[2017-02-14] MEDS: HYDROMORPHONE HCL 2 MG TABLET PO PRN (16:20)
[2017-02-14] MEDS: LANSOPRAZOLE 15 MG TAB.RAP.DR PO SCH (17:46)
[2017-02-14] MEDS: DOCUSATE SODIUM 100 MG CAPSULE PO SCH (17:46)
[2017-02-14] MEDS: NYSTATIN CREAM 15 GM TP SCH (17:50)
--- NOTE | 2017-02-14 20:39 | CONSULTATION REPORT E ---
Consultation Report NAME: BRITTNEY SANDERS : 1930 AGE: 87Y DATE: 02/14/2017 207 A TO: BHUPENDRA LYNNE M.D. FROM: JUVENTINO MCCARTY M.D. Requesting Physician REASON FOR CONSULTATION: Patient with lumbar compression fracture and intractable back pain. CHIEF COMPLAINT: Back pain. HISTORY OF PRESENT ILLNESS: The patient is an 87-year-old female known to our clinic at [facility] with recent lumbar vertebral compression fracture of the L1 vertebral body. The patient was notably scheduled to have kyphoplasty procedure performed on Saturday, 02/12; however, this was canceled secondary to substantially dirty urine and concern for urinary tract infection. The patient was discharged with Levaquin and surgery to be rescheduled at a later date. Unfortunately the patient apparently became quite nauseated with taking Levaquin and presented to the emergency department today and was admitted for treatment with IV fluids and antibiotics. However, the back pain remains the substantial complaint. She does get some pain benefit from hydromorphone though it only lasts somewhere between 4-6 hours. She notes she has severe pain in her mid back with any sort of movement and even sitting still. There is no substantial radiation component to the pain that may be localized to her mid back. PAST MEDICAL HISTORY: 1. Hypertension. 2. Hyperlipidemia. 3. Diabetes mellitus. 4. Anemia. 5. History of colon cancer. 6. History of lung cancer. 7. Low back pain/arthritis. 8. History of recurrent urinary tract infections. PAST SURGICAL HISTORY: 1. EGD, November 2011. 2. Sacroplasty performed 2011. 3. History of appendectomy, cholecystectomy and hysterectomy. 4. Lung cancer surgery. 5. Colon cancer surgery. SOCIAL HISTORY: The patient is a former smoker, not current. She is here to stay with her son. She denies any illicit substance use. ALLERGIES: 1. CIPRO. 2. SULFA. 3. TRIMETHOPRIM. HOME MEDICATIONS: Please see MAR. REVIEW OF SYSTEMS: Patient endorses nausea. History of vomiting in the past, not current. Abdominal upset and abdominal pain. Generalized myalgias and mid back pain. PHYSICAL EXAMINATION: VITAL SIGNS: Temperature 97.8, pulse 87, blood pressure 135/73, saturations 96% on room air, respiratory rate 16. Pain level 5/5 on numeric rating scale. GENERAL: The patient is a thin elderly female sitting in the hospital bed in moderate discomfort from pain. She is accompanied by her son. She is alert and oriented x3. HEENT: The patient wears glasses. Head is normocephalic, atraumatic. CARDIOVASCULAR: Pulse is regular. EXTREMITIES: The patient has scarring on the left lower extremity. She has trace edema to mid rob bilaterally. Moves all extremities x4. MUSCULOSKELETAL: The patient is tender to palpation in the midline of the lumbar spine. NEUROLOGIC: No overt deficits. ASSESSMENT: The patient is an 87-year-old female with a vertebral compression fracture of the L1 vertebral body and subsequent pain suffering from concomitant urinary tract infection. The patient has been notably started on a course of IV cefepime after inability to tolerate Levaquin. I am going to have a repeat urinalysis drawn tomorrow to make sure there has been some improvement and hopefully we can get the patient rescheduled for kyphoplasty, most likely early next week based upon our scheduling availability. I will continue to follow along with the patient. In the meantime, we will increase her Dilaudid to q.6 h. p.r.n. for improvement from end-of-dose failure issues. DICTATING PHYSICIAN: BHUPENDRA LYNNE M.D. [id number] PHY#: [id number] ID: [id number] JOB#: [id number] ACCT: [id number] cc:BHUPENDRA LYNNE M.D. >
[2017-02-14] MEDS: CEFEPIME 1 GM/D5W RTU 50 ML IV SCH (21:50)
[2017-02-14] MEDS: ATORVASTATIN CALCIUM 20 MG TABLET PO SCH (21:50)
[2017-02-14] MEDS: TOLTERODINE TARTRATE 1 MG TABLET PO SCH (21:51)
[2017-02-14] MEDS: GABAPENTIN 100 MG CAPSULE PO SCH (21:51)
[2017-02-14] MEDS: METOPROLOL TARTRATE 50 MG TABLET PO SCH (21:51)
[2017-02-15] MEDS: HYDROMORPHONE HCL 2 MG TABLET PO PRN ×3 (00:23→21:27)
[2017-02-15] MEDS: NORMAL SALINE 1000 ML 1,000 ML IV PRN (05:50)
[2017-02-15] MEDS: LANSOPRAZOLE 15 MG TAB.RAP.DR PO SCH ×2 (05:51→17:38)
[2017-02-15 06:41] LABS: ABSOLUTE EOSINOPHILS # (AUTO) 0.1 10^3/uL (0.0-0.6); ABSOLUTE LYMPHOCYTES (AUTO) 0.9 10^3/uL (0.5-4.7); ABSOLUTE MONOCYTES (AUTO) 0.6 10^3/uL (0.1-1.4); ABSOLUTE NEUT (AUTO) 2.4 10^3/uL (1.7-8.2); BASOPHILS % (AUTO) 0.5 % (0-2); EOSINOPHILS % (AUTO) 2.9 % (0-6); HEMATOCRIT 33.3 % (36.0-47.0); HEMOGLOBIN 10.9 g/dL (12.0-15.5); HGB HCT DIFFERENCE -0.6; MEAN CORPUSCULAR HEMOGLOBIN 32.8 pg (27.0-33.4); MEAN CORPUSCULAR HGB CONC 32.9 g/dL (32.0-36.0); MEAN CORPUSCULAR VOLUME 100 fl (80-97); MONOCYTES % (AUTO) 15.1 % (3-13); RED BLOOD COUNT 3.33 10^6/uL (3.72-5.28); RED CELL DISTRIBUTION WIDTH 14.9 % (11.5-14.0); SEGMENTED NEUTROPHILS % (AUTO) 59.5 % (42-78)
[2017-02-15 06:58] LABS: ANION GAP 5 (5-19); BLOOD UREA NITROGEN 16 mg/dL (7-20); CALCIUM 8.9 mg/dL (8.4-10.2); CARBON DIOXIDE 28 mmol/L (22-30); CHLORIDE 103 mmol/L (98-107); CREATININE RESULT 0.78 mg/dL (0.52-1.25); GLUCOSE 89 mg/dL (75-110); POTASSIUM 4.5 mmol/L (3.6-5.0); SODIUM 136.2 mmol/L (137-145)
--- NOTE | 2017-02-15 08:25 | PDOC PROGRESS REPORT ---
Subjective Progress Note for:: 02/15/17 Subjective:: Patient is currently doing fair. Patient's denied any chest pain denied any shortness of the breath no nausea no vomiting. Patient CT abdomen and pelvis was done yesterday was all stable.Patient seen by the pain management and discussed with the pain management possible kyphoplasty once after several couple of days antibiotic.Patient's currently on cefepime which most likely cover the Pseudomonas and the patient's last urine culture was negative so hopefully patient should be okay for the procedures Physical Exam Vital Signs: Temp Pulse Resp BP Pulse Ox 98.7 F 63 20 142/67 H 96 02/15/17 03:31 02/15/17 03:31 02/15/17 03:31 02/15/17 03:31 02/15/17 03:31 Intake & Output 02/14/17 02/15/17 02/16/17 06:59 06:59 06:59 Intake Total 300 Output Total 1500 Balance -1200 Weight 48.6 kg General appearance: PRESENT: no acute distress, well-developed, well-nourished Head exam: PRESENT: atraumatic, normocephalic Eye exam: PRESENT: conjunctiva pink, EOMI, PERRLA. ABSENT: scleral icterus Ear exam: PRESENT: normal external ear exam Mouth exam: PRESENT: moist, tongue midline Neck exam: PRESENT: full ROM. ABSENT: carotid bruit, JVD, lymphadenopathy, thyromegaly Respiratory exam: PRESENT: clear to auscultation becca Cardiovascular exam: PRESENT: RRR. ABSENT: diastolic murmur, rubs, systolic murmur Pulses: PRESENT: normal dorsalis pedis pul, +2 pedal pulses bilateral Vascular exam: PRESENT: normal capillary refill GI/Abdominal exam: PRESENT: normal bowel sounds, soft. ABSENT: distended, guarding, mass, organolmegaly, rebound, tenderness Rectal exam: PRESENT: deferred Neurological exam: PRESENT: alert, awake, oriented to person, oriented to place , oriented to time, oriented to situation, CN II-XII grossly intact. ABSENT: motor sensory deficit Psychiatric exam: PRESENT: appropriate affect, normal mood. ABSENT: homicidal ideation, suicidal ideation Skin exam: PRESENT: dry, intact, warm. ABSENT: cyanosis, rash Results Laboratory Results: 02/15/17 06:02 02/15/17 06:02 02/14/17 02/14/17 02/15/17 12:00 12:00 06:02 WBC 5.7 4.0 RBC 3.39 L 3.33 L Hgb 11.3 L 10.9 L Hct 34.0 L 33.3 L MCV 100 H 100 H MCH 33.3 32.8 MCHC 33.3 32.9 RDW 14.7 H 14.9 H Plt Count 244 209 Seg Neutrophils % 72.2 59.5 Lymphocytes % 16.5 22.0 Monocytes % 9.8 15.1 H Eosinophils % 1.1 2.9 Basophils % 0.4 0.5 Absolute Neutrophils 4.1 2.4 Absolute Lymphocytes 0.9 0.9 Absolute Monocytes 0.6 0.6 Absolute Eosinophils 0.1 0.1 Absolute Basophils 0.0 0.0 Sodium 133.6 L Potassium 4.1 Chloride 98 Carbon Dioxide 27 Anion Gap 9 BUN 22 H Creatinine 1.07 Est GFR ( Amer) 59 L Est GFR (Non-Af Amer) 48 L Glucose 108 Calcium 8.8 Total Bilirubin 0.5 AST 25 ALT 22 Alkaline Phosphatase 174 H Total Protein 5.8 L Albumin 2.9 L 02/15/17 06:02 WBC RBC Hgb Hct MCV MCH MCHC RDW Plt Count Seg Neutrophils % Lymphocytes % Monocytes % Eosinophils % Basophils % Absolute Neutrophils Absolute Lymphocytes Absolute Monocytes Absolute Eosinophils Absolute Basophils Sodium 136.2 L Potassium 4.5 Chloride 103 Carbon Dioxide 28 Anion Gap 5 BUN 16 Creatinine 0.78 Est GFR ( Amer) > 60 Est GFR (Non-Af Amer) > 60 Glucose 89 Calcium 8.9 Total Bilirubin AST ALT Alkaline Phosphatase Total Protein Albumin Impressions: Abdomen/Pelvis CT 02/14/17 00:00 IMPRESSION: 1. Compression fracture L1 which is a known finding. 2. No acute findings in the urinary tract. Assessment & Plan - Diagnosis (1) Nausea and vomiting Qualifiers: Vomiting Intractability: unspecified Is this a current diagnosis for this admission?: YesPlan: Most likely from the antibiotic Levaquin currently all resolved (2) Urinary tract infection Qualifiers: Urinary tract infection type: site unspecified Is this a current diagnosis for this admission?: YesPlan: Continues to IV cefepime and wait for the urine culture (3) Compression fracture of first lumbar vertebra Qualifiers: Encounter type: sequela Qualified Code(s): S32.010S - Wedge compression fracture of first lumbar vertebra, sequela Is this a current diagnosis for this admission?: YesPlan: Follow with the pain management (4) Anemia Qualifiers: Anemia type: unspecified type Qualified Code(s): D64.9 - Anemia, unspecified Is this a current diagnosis for this admission?: YesPlan: Currently stable (5) COPD (chronic obstructive pulmonary disease) Qualifiers: Chronic bronchitis type: unspecified Is this a current diagnosis for this admission?: YesPlan: Continues to Xopenex as needed (6) GERD (gastroesophageal reflux disease) Qualifiers: Esophagitis presence: without esophagitis Qualified Code(s): K21.9 - Gastro-esophageal reflux disease without esophagitis Is this a current diagnosis for this admission?: YesPlan: Continues to PPI (7) HTN (hypertension) Qualifiers: Hypertension type: essential hypertension Qualified Code(s): I10 - Essential (primary) hypertension Is this a current diagnosis for this admission?: YesPlan: Continues to current medications (8) History of colon cancer Plan: Currently stable patients follow with the Dr. Schwartz (9) History of lung cancer Plan: Stable - Time Time Spent with patient: 15-24 minutes Medications reviewed and adjusted accordingly: Yes Anticipated discharge: SNF Within: Other - Inpatient Certification Medical Necessity: Need Close Monitoring Due to Risk of Patient Decompensation, Need for IV Antibiotics Post Hospital Care: D/C 3Rd Mate Documentation - Plan Summary Plan Summary: Discussed with the patient and the son regarding the patient's current conditions and coordinate care with the Dr. Foy and continues to current medications. Will add the MiraLAX for the constipations and get the physical therapy evaluations
[2017-02-15] MEDS: ENOXAPARIN SODIUM INJ 30 MG/0.3 ML DISP.SYRIN SUBCUT SCH (09:35)
[2017-02-15] MEDS: SITAGLIPTIN PHOSPHATE 25 MG TABLET PO SCH (09:36)
[2017-02-15] MEDS: LEVOTHYROXINE SODIUM 0.05 MG TABLET PO SCH (09:36)
[2017-02-15] MEDS: METOPROLOL TARTRATE 50 MG TABLET PO SCH ×2 (09:36→21:28)
[2017-02-15] MEDS: DOCUSATE SODIUM 100 MG CAPSULE PO SCH ×2 (09:36→17:37)
[2017-02-15] MEDS: LANSOPRAZOLE 30 MG TAB.RAP.DR PO SCH (09:36)
[2017-02-15] MEDS: TOLTERODINE TARTRATE 1 MG TABLET PO SCH ×2 (09:36→21:27)
[2017-02-15] MEDS: NYSTATIN 500000 UNIT/5 ML UDCUP PO SCH (09:36)
[2017-02-15] MEDS: ALLOPURINOL 100 MG TABLET PO SCH (09:36)
[2017-02-15] MEDS: CEFEPIME 1 GM/D5W RTU 50 ML IV SCH ×2 (09:37→21:28)
[2017-02-15] MEDS: NYSTATIN CREAM 15 GM TP SCH ×2 (09:37→19:55)
[2017-02-15] MEDS ORDERED: LEVOTHYROXINE SODIUM 50 MCG PO SCH (10:00)
[2017-02-15] MEDS ORDERED: (PENDING PHARMACY ID) (Solifenacin Succinate [Vesicare] 5 MG) PO SCH (10:00)
[2017-02-15] MEDS ORDERED: NYSTATIN PO SCH (10:00)
[2017-02-15] MEDS: ACETAMINOPHEN 325 MG TABLET PO PRN (10:37)
[2017-02-15] MEDS: POLYETHYLENE GLYCOL 3350 POWDER 17 GM/1 PACKET PO SCH (11:08)
[2017-02-15 16:38] LABS: APPEARANCE,URINE SLIGHTLY-CLOUDY; BILIRUBIN,URINE NEGATIVE (NEGATIVE); GLUCOSE, URINE NEGATIVE (NEGATIVE); KETONES,URINE NEGATIVE (NEGATIVE); LEUKOCYTE ESTERASE,URINE SMALL (NEGATIVE); NITRITE,URINE NEGATIVE (NEGATIVE); PROTEIN,URINE 30 mg/dL (NEGATIVE); URINE SPECIFIC GRAVITY 1.004; UROBILINOGEN,URINE NEGATIVE mg/dL (<2.0)
[2017-02-15] MEDS ORDERED: AMLODIPINE BESYLATE 2.5 MG TABLET PO ONE (17:30)
[2017-02-15] MEDS: ATORVASTATIN CALCIUM 20 MG TABLET PO SCH (21:28)
[2017-02-15] MEDS: GABAPENTIN 100 MG CAPSULE PO SCH (21:28)
[2017-02-16 06:23] LABS: ABSOLUTE EOSINOPHILS # (AUTO) 0.1 10^3/uL (0.0-0.6); ABSOLUTE LYMPHOCYTES (AUTO) 0.6 10^3/uL (0.5-4.7); ABSOLUTE MONOCYTES (AUTO) 0.6 10^3/uL (0.1-1.4); ABSOLUTE NEUT (AUTO) 3.7 10^3/uL (1.7-8.2); BASOPHILS % (AUTO) 0.9 % (0-2); EOSINOPHILS % (AUTO) 2.2 % (0-6); HEMATOCRIT 35.3 % (36.0-47.0); HEMOGLOBIN 11.7 g/dL (12.0-15.5); HGB HCT DIFFERENCE -0.2; MEAN CORPUSCULAR HEMOGLOBIN 33.2 pg (27.0-33.4); MEAN CORPUSCULAR HGB CONC 33.2 g/dL (32.0-36.0); MEAN CORPUSCULAR VOLUME 100 fl (80-97); MONOCYTES % (AUTO) 11.1 % (3-13); RED BLOOD COUNT 3.52 10^6/uL (3.72-5.28); RED CELL DISTRIBUTION WIDTH 15.2 % (11.5-14.0); SEGMENTED NEUTROPHILS % (AUTO) 73.8 % (42-78)
[2017-02-16] MEDS: HYDROMORPHONE HCL 2 MG TABLET PO PRN ×2 (06:50→17:32)
[2017-02-16] MEDS: LANSOPRAZOLE 15 MG TAB.RAP.DR PO SCH ×2 (06:50→17:26)
[2017-02-16 08:05] LABS: ANION GAP 7 (5-19); BLOOD UREA NITROGEN 14 mg/dL (7-20); CALCIUM 8.8 mg/dL (8.4-10.2); CARBON DIOXIDE 26 mmol/L (22-30); CHLORIDE 102 mmol/L (98-107); CREATININE RESULT 0.71 mg/dL (0.52-1.25); GLUCOSE 106 mg/dL (75-110); POTASSIUM 4.1 mmol/L (3.6-5.0)
[2017-02-16] MEDS: ENOXAPARIN SODIUM INJ 30 MG/0.3 ML DISP.SYRIN SUBCUT SCH (09:11)
[2017-02-16] MEDS: SITAGLIPTIN PHOSPHATE 25 MG TABLET PO SCH (09:12)
[2017-02-16] MEDS: AMLODIPINE BESYLATE 2.5 MG TABLET PO SCH (09:12)
[2017-02-16] MEDS: POLYETHYLENE GLYCOL 3350 POWDER 17 GM/1 PACKET PO SCH (09:12)
[2017-02-16] MEDS: DOCUSATE SODIUM 100 MG CAPSULE PO SCH ×2 (09:12→17:26)
[2017-02-16] MEDS: ALLOPURINOL 100 MG TABLET PO SCH (09:12)
[2017-02-16] MEDS: METOPROLOL TARTRATE 50 MG TABLET PO SCH ×2 (09:12→21:31)
[2017-02-16] MEDS: NYSTATIN 500000 UNIT/5 ML UDCUP PO SCH (09:12)
[2017-02-16] MEDS: LANSOPRAZOLE 30 MG TAB.RAP.DR PO SCH (09:12)
[2017-02-16] MEDS: TOLTERODINE TARTRATE 1 MG TABLET PO SCH ×2 (09:12→21:31)
[2017-02-16] MEDS: LEVOTHYROXINE SODIUM 0.05 MG TABLET PO SCH (09:12)
[2017-02-16] MEDS: CEFEPIME 1 GM/D5W RTU 50 ML IV SCH (09:28)
[2017-02-16] MEDS: NYSTATIN CREAM 15 GM TP SCH ×2 (11:37→17:25)
--- NOTE | 2017-02-16 14:38 | PDOC PROGRESS REPORT ---
Subjective Progress Note for:: 02/16/17 Subjective:: Patient was seen by the bedside, she was admitted because of UTI and fracture of the lumbar vertebral. She is on IV antibiotic, she is scheduled for kyphoplasty of the lumbar spine next week. Physical Exam Vital Signs: Temp Pulse Resp BP Pulse Ox 97.9 F 63 20 138/67 H 96 02/16/17 11:14 02/16/17 11:14 02/16/17 11:14 02/16/17 11:14 02/16/17 11:14 Intake & Output 02/15/17 02/16/17 02/17/17 06:59 06:59 06:59 Intake Total 300 Output Total 1500 400 Balance -1200 -400 Weight 48.6 kg 48 kg General appearance: PRESENT: no acute distress Eye exam: PRESENT: PERRLA Respiratory exam: PRESENT: clear to auscultation becca Cardiovascular exam: PRESENT: +S1, +S2 GI/Abdominal exam: PRESENT: soft Neurological exam: PRESENT: alert, CN II-XII grossly intact Results Laboratory Results: 02/16/17 05:37 02/16/17 07:33 02/15/17 02/16/17 02/16/17 16:10 05:37 05:37 WBC 5.0 RBC 3.52 L Hgb 11.7 L Hct 35.3 L MCV 100 H MCH 33.2 MCHC 33.2 RDW 15.2 H Plt Count 187 Seg Neutrophils % 73.8 Lymphocytes % 12.0 L Monocytes % 11.1 Eosinophils % 2.2 Basophils % 0.9 Absolute Neutrophils 3.7 Absolute Lymphocytes 0.6 Absolute Monocytes 0.6 Absolute Eosinophils 0.1 Absolute Basophils 0.0 Sodium Cancelled Potassium Cancelled Chloride Cancelled Carbon Dioxide Cancelled Anion Gap Cancelled BUN Cancelled Creatinine Cancelled Est GFR ( Amer) Cancelled Est GFR (Non-Af Amer) Cancelled Glucose Cancelled Calcium Cancelled Urine Color STRAW Urine Appearance SLIGHTLY-CLOUDY Urine pH 7.0 Ur Specific [place] 1.004 Urine Protein 30 H Urine Glucose (UA) NEGATIVE Urine Ketones NEGATIVE Urine Blood MODERATE H Urine Nitrite NEGATIVE Ur Leukocyte Esterase SMALL H Urine WBC (Auto) 15 Urine RBC (Auto) 11 02/16/17 07:33 WBC RBC Hgb Hct MCV MCH MCHC RDW Plt Count Seg Neutrophils % Lymphocytes % Monocytes % Eosinophils % Basophils % Absolute Neutrophils Absolute Lymphocytes Absolute Monocytes Absolute Eosinophils Absolute Basophils Sodium 135.0 L Potassium 4.1 Chloride 102 Carbon Dioxide 26 Anion Gap 7 BUN 14 Creatinine 0.71 Est GFR ( Amer) > 60 Est GFR (Non-Af Amer) > 60 Glucose 106 Calcium 8.8 Urine Color Urine Appearance Urine pH Ur Specific [place] Urine Protein Urine Glucose (UA) Urine Ketones Urine Blood Urine Nitrite Ur Leukocyte Esterase Urine WBC (Auto) Urine RBC (Auto) 02/14/17 12:15 Nasophary (Mrsa Only) MRSA Culture - Final NO MRSA RECOVERED 02/14/17 17:25 Clean Catch Midstream Urine Culture - Final NO GROWTH 2 DAYS Impressions: Abdomen/Pelvis CT 02/14/17 00:00 IMPRESSION: 1. Compression fracture L1 which is a known finding. 2. No acute findings in the urinary tract. Assessment & Plan - Diagnosis (1) Urinary tract infection Qualifiers: Hematuria presence: without hematuria Is this a current diagnosis for this admission?: YesPlan: She will continue IV antibiotic. (2) Compression fracture of first lumbar vertebra Qualifiers: Encounter type: sequela Qualified Code(s): S32.010S - Wedge compression fracture of first lumbar vertebra, sequela Is this a current diagnosis for this admission?: Yes (3) Nausea and vomiting Qualifiers: Vomiting Intractability: unspecified Is this a current diagnosis for this admission?: Yes (4) COPD (chronic obstructive pulmonary disease) Qualifiers: Chronic bronchitis type: unspecified Is this a current diagnosis for this admission?: Yes (5) GERD (gastroesophageal reflux disease) Qualifiers: Esophagitis presence: without esophagitis Qualified Code(s): K21.9 - Gastro-esophageal reflux disease without esophagitis Is this a current diagnosis for this admission?: Yes (6) HLD (hyperlipidemia) Is this a current diagnosis for this admission?: Yes
[2017-02-16] MEDS: CEFEPIME HCL 1 GM in DEXTROSE 5%-WATER 50 ML IV SCH (21:31)
[2017-02-16] MEDS: ATORVASTATIN CALCIUM 20 MG TABLET PO SCH (21:31)
[2017-02-16] MEDS: GABAPENTIN 100 MG CAPSULE PO SCH (21:32)
[2017-02-17] MEDS: LANSOPRAZOLE 15 MG TAB.RAP.DR PO SCH ×2 (06:36→16:09)
[2017-02-17] MEDS: HYDROMORPHONE HCL 2 MG TABLET PO PRN ×2 (06:39→21:18)
[2017-02-17 07:58] LABS: HEMATOCRIT 36.3 % (36.0-47.0); HEMOGLOBIN 11.9 g/dL (12.0-15.5); HGB HCT DIFFERENCE -0.6; MEAN CORPUSCULAR HEMOGLOBIN 32.7 pg (27.0-33.4); MEAN CORPUSCULAR HGB CONC 32.8 g/dL (32.0-36.0); MEAN CORPUSCULAR VOLUME 100 fl (80-97); RED BLOOD COUNT 3.64 10^6/uL (3.72-5.28); RED CELL DISTRIBUTION WIDTH 15.2 % (11.5-14.0); WHITE BLOOD COUNT 5.1 10^3/uL (4.0-10.5)
[2017-02-17 08:15] LABS: ANION GAP 8 (5-19); BLOOD UREA NITROGEN 11 mg/dL (7-20); CALCIUM 9.1 mg/dL (8.4-10.2); CARBON DIOXIDE 27 mmol/L (22-30); CHLORIDE 100 mmol/L (98-107); GLUCOSE 93 mg/dL (75-110); POTASSIUM 4.2 mmol/L (3.6-5.0); SODIUM 135.3 mmol/L (137-145)
[2017-02-17 08:25] LABS: PROTHROMBIN TIME 13.4 SEC (11.4-15.4)
[2017-02-17 08:26] LABS: PARTIAL THROMBOPLASTIN TIME 35.7 SEC (23.5-35.8)
[2017-02-17] MEDS: DOCUSATE SODIUM 100 MG CAPSULE PO SCH ×2 (09:25→16:06)
[2017-02-17] MEDS: POLYETHYLENE GLYCOL 3350 POWDER 17 GM/1 PACKET PO SCH (09:25)
[2017-02-17] MEDS: NYSTATIN 500000 UNIT/5 ML UDCUP PO SCH (09:29)
[2017-02-17] MEDS: LANSOPRAZOLE 30 MG TAB.RAP.DR PO SCH (09:30)
[2017-02-17] MEDS: TOLTERODINE TARTRATE 1 MG TABLET PO SCH ×2 (09:30→21:19)
[2017-02-17] MEDS: LEVOTHYROXINE SODIUM 0.05 MG TABLET PO SCH (09:30)
[2017-02-17] MEDS: AMLODIPINE BESYLATE 2.5 MG TABLET PO SCH (09:30)
[2017-02-17] MEDS: ALLOPURINOL 100 MG TABLET PO SCH (09:31)
[2017-02-17] MEDS: METOPROLOL TARTRATE 50 MG TABLET PO SCH ×2 (09:31→21:18)
[2017-02-17] MEDS: NYSTATIN CREAM 15 GM TP SCH ×2 (09:31→16:06)
[2017-02-17] MEDS: SITAGLIPTIN PHOSPHATE 25 MG TABLET PO SCH (09:31)
[2017-02-17] MEDS: CEFEPIME HCL 1 GM in DEXTROSE 5%-WATER 50 ML IV SCH ×2 (09:33→21:19)
--- NOTE | 2017-02-17 14:33 | PDOC PROGRESS REPORT ---
Subjective Progress Note for:: 02/17/17 Subjective:: Patient was seen by the bedside, she was admitted because of UTI and fracture of the lumbar vertebral. She is on IV antibiotic, she is scheduled for kyphoplasty of the lumbar spine next week. Physical Exam Vital Signs: Temp Pulse Resp BP Pulse Ox 98.1 F 64 18 152/68 H 95 02/17/17 11:30 02/17/17 11:30 02/17/17 11:30 02/17/17 11:30 02/17/17 11:30 Intake & Output 02/16/17 02/17/17 02/18/17 06:59 06:59 06:59 Intake Total 308 Output Total 400 1000 Balance -400 -692 Weight 48 kg 48.3 kg General appearance: PRESENT: no acute distress Eye exam: PRESENT: PERRLA Respiratory exam: PRESENT: clear to auscultation becca Cardiovascular exam: PRESENT: +S1, +S2 GI/Abdominal exam: PRESENT: soft Results Laboratory Results: 02/17/17 07:35 02/17/17 07:35 02/17/17 02/17/17 07:35 07:35 WBC 5.1 RBC 3.64 L Hgb 11.9 L Hct 36.3 MCV 100 H MCH 32.7 MCHC 32.8 RDW 15.2 H Plt Count 209 Sodium 135.3 L Potassium 4.2 Chloride 100 Carbon Dioxide 27 Anion Gap 8 BUN 11 Creatinine 0.70 Est GFR ( Amer) > 60 Est GFR (Non-Af Amer) > 60 Glucose 93 Calcium 9.1 Impressions: Abdomen/Pelvis CT 02/14/17 00:00 IMPRESSION: 1. Compression fracture L1 which is a known finding. 2. No acute findings in the urinary tract. Assessment & Plan - Diagnosis (1) Urinary tract infection Qualifiers: Hematuria presence: without hematuria Is this a current diagnosis for this admission?: Yes (2) Compression fracture of first lumbar vertebra Qualifiers: Encounter type: sequela Qualified Code(s): S32.010S - Wedge compression fracture of first lumbar vertebra, sequela Is this a current diagnosis for this admission?: Yes (3) Nausea and vomiting Qualifiers: Vomiting Intractability: unspecified Is this a current diagnosis for this admission?: Yes (4) COPD (chronic obstructive pulmonary disease) Qualifiers: Chronic bronchitis type: unspecified Is this a current diagnosis for this admission?: Yes (5) GERD (gastroesophageal reflux disease) Qualifiers: Esophagitis presence: without esophagitis Qualified Code(s): K21.9 - Gastro-esophageal reflux disease without esophagitis Is this a current diagnosis for this admission?: Yes (6) HLD (hyperlipidemia) Is this a current diagnosis for this admission?: Yes
[2017-02-17] MEDS: ATORVASTATIN CALCIUM 20 MG TABLET PO SCH (21:18)
[2017-02-17] MEDS: GABAPENTIN 100 MG CAPSULE PO SCH (21:19)
[2017-02-18] MEDS: LANSOPRAZOLE 15 MG TAB.RAP.DR PO SCH ×2 (05:54→17:30)
[2017-02-18] MEDS: HYDROMORPHONE HCL 2 MG TABLET PO PRN ×2 (06:07→22:38)
[2017-02-18 06:47] LABS: ANION GAP 8 (5-19); BLOOD UREA NITROGEN 12 mg/dL (7-20); CALCIUM 8.7 mg/dL (8.4-10.2); CARBON DIOXIDE 27 mmol/L (22-30); CHLORIDE 101 mmol/L (98-107); CREATININE RESULT 0.61 mg/dL (0.52-1.25); GLUCOSE 86 mg/dL (75-110); POTASSIUM 3.9 mmol/L (3.6-5.0); SODIUM 136.3 mmol/L (137-145)
--- NOTE | 2017-02-18 08:33 | PDOC PROGRESS REPORT ---
Subjective Progress Note for:: 02/18/17 Subjective:: Patient is currently doing well. Patient's denied any chest pain denied any shortness of the breath. Patient is scheduled for the kyphoplasty today. Patients do not want to go to the rehab Physical Exam Vital Signs: Temp Pulse Resp BP Pulse Ox 98.0 F 61 16 169/67 H 95 02/18/17 07:09 02/18/17 07:09 02/18/17 07:09 02/18/17 07:09 02/18/17 07:09 Intake & Output 02/17/17 02/18/17 02/19/17 06:59 06:59 06:59 Intake Total 308 548 Output Total 1000 200 200 Balance -692 348 -200 Weight 48.3 kg 45 kg General appearance: PRESENT: no acute distress, well-developed, well-nourished Head exam: PRESENT: atraumatic, normocephalic Eye exam: PRESENT: conjunctiva pink, EOMI, PERRLA. ABSENT: scleral icterus Ear exam: PRESENT: normal external ear exam Mouth exam: PRESENT: moist, tongue midline Neck exam: PRESENT: full ROM. ABSENT: carotid bruit, JVD, lymphadenopathy, thyromegaly Respiratory exam: PRESENT: clear to auscultation becca Cardiovascular exam: PRESENT: RRR. ABSENT: diastolic murmur, rubs, systolic murmur Pulses: PRESENT: normal dorsalis pedis pul, +2 pedal pulses bilateral Vascular exam: PRESENT: normal capillary refill GI/Abdominal exam: PRESENT: normal bowel sounds, soft. ABSENT: distended, guarding, mass, organolmegaly, rebound, tenderness Rectal exam: PRESENT: deferred Neurological exam: PRESENT: alert, awake, oriented to person, oriented to place , oriented to time, oriented to situation, CN II-XII grossly intact. ABSENT: motor sensory deficit Psychiatric exam: PRESENT: appropriate affect, normal mood. ABSENT: homicidal ideation, suicidal ideation Skin exam: PRESENT: dry, intact, warm. ABSENT: cyanosis, rash Results Laboratory Results: 02/17/17 07:35 02/18/17 05:55 02/18/17 05:55 Sodium 136.3 L Potassium 3.9 Chloride 101 Carbon Dioxide 27 Anion Gap 8 BUN 12 Creatinine 0.61 Est GFR ( Amer) > 60 Est GFR (Non-Af Amer) > 60 Glucose 86 Calcium 8.7 Impressions: Abdomen/Pelvis CT 02/14/17 00:00 IMPRESSION: 1. Compression fracture L1 which is a known finding. 2. No acute findings in the urinary tract. Assessment & Plan - Diagnosis (1) Nausea and vomiting Qualifiers: Vomiting Intractability: unspecified Is this a current diagnosis for this admission?: YesPlan: All resolved (2) Urinary tract infection Qualifiers: Urinary tract infection type: site unspecified Is this a current diagnosis for this admission?: YesPlan: All resolved (3) Compression fracture of first lumbar vertebra Qualifiers: Encounter type: sequela Qualified Code(s): S32.010S - Wedge compression fracture of first lumbar vertebra, sequela Is this a current diagnosis for this admission?: YesPlan: Scheduled for the kyphoplasty today (4) Anemia Qualifiers: Anemia type: unspecified type Qualified Code(s): D64.9 - Anemia, unspecified Is this a current diagnosis for this admission?: YesPlan: Currently stable (5) COPD (chronic obstructive pulmonary disease) Qualifiers: Chronic bronchitis type: unspecified Is this a current diagnosis for this admission?: YesPlan: Continues to Xopenex as needed (6) GERD (gastroesophageal reflux disease) Qualifiers: Esophagitis presence: without esophagitis Qualified Code(s): K21.9 - Gastro-esophageal reflux disease without esophagitis Is this a current diagnosis for this admission?: YesPlan: Continues to PPI (7) HTN (hypertension) Qualifiers: Hypertension type: essential hypertension Qualified Code(s): I10 - Essential (primary) hypertension Is this a current diagnosis for this admission?: YesPlan: Continues to current medications (8) History of colon cancer Plan: Currently stable patients follow with the Dr. Schwartz - Time Time Spent with patient: 15-24 minutes Medications reviewed and adjusted accordingly: Yes Anticipated discharge: Other Within: Other - Inpatient Certification Medical Necessity: Need Close Monitoring Due to Risk of Patient Decompensation Post Hospital Care: D/C Dye Line Operator Documentation - Plan Summary Plan Summary: Continues to current medications scheduled for the kyphoplasty for the pain management
[2017-02-18] MEDS: DOCUSATE SODIUM 100 MG CAPSULE PO SCH ×2 (09:20→17:45)
[2017-02-18] MEDS: LEVOTHYROXINE SODIUM 0.05 MG TABLET PO SCH (09:20)
[2017-02-18] MEDS: AMLODIPINE BESYLATE 2.5 MG TABLET PO SCH (09:21)
[2017-02-18] MEDS: TOLTERODINE TARTRATE 1 MG TABLET PO SCH ×2 (09:21→21:43)
[2017-02-18] MEDS: METOPROLOL TARTRATE 50 MG TABLET PO SCH ×2 (09:23→21:44)
[2017-02-18] MEDS: SITAGLIPTIN PHOSPHATE 25 MG TABLET PO SCH (09:24)
[2017-02-18] MEDS: NYSTATIN CREAM 15 GM TP SCH ×2 (09:24→17:45)
[2017-02-18] MEDS: LANSOPRAZOLE 30 MG TAB.RAP.DR PO SCH (09:24)
[2017-02-18] MEDS: ALLOPURINOL 100 MG TABLET PO SCH (09:24)
[2017-02-18] MEDS: NYSTATIN 500000 UNIT/5 ML UDCUP PO SCH (09:30)
[2017-02-18] MEDS: POLYETHYLENE GLYCOL 3350 POWDER 17 GM/1 PACKET PO SCH (09:30)
[2017-02-18] MEDS: CEFEPIME HCL 1 GM in DEXTROSE 5%-WATER 50 ML IV SCH (09:34)
[2017-02-18] MEDS ORDERED: LIDOCAINE 2% INJ-PF (20 MG/ML) 10 ML AMPUL ONE (09:51)
[2017-02-18] MEDS ORDERED: PROPOFOL INJ 200 MG/20 ML VIAL IV ONE ×2 (13:14→13:16)
[2017-02-18] MEDS ORDERED: FENTANYL CITRATE INJ/PF 100 MCG/2 ML AMPUL ONE (13:15)
[2017-02-18] MEDS ORDERED: EPHEDRINE SULFATE INJ 50 MG/1 ML AMPULE ONE (13:16)
[2017-02-18] MEDS ORDERED: MIDAZOLAM 2 MG/2 ML INJ ONE (13:17)
[2017-02-18] MEDS ORDERED: CEFAZOLIN INJ 1 GM VIAL ONE (14:17)
[2017-02-18] MEDS ORDERED: MEPERIDINE HCL/PF INJ 25 MG/1 ML DISP.SYRIN IV PRN (14:19)
[2017-02-18] MEDS ORDERED: PROMETHAZINE HCL INJ 25 MG/1 ML VIAL IV PRN ×2 (14:19)
[2017-02-18] MEDS ORDERED: FENTANYL CITRATE INJ/PF 100 MCG/2 ML AMPUL IV PRN ×3 (14:19)
[2017-02-18] MEDS ORDERED: DIPHENHYDRAMINE HCL 50 MG/ML VIAL IV PRN (14:19)
[2017-02-18] MEDS ORDERED: ONDANSETRON HCL INJ/PF 4 MG/2 ML SDV IV PRN (14:19)
[2017-02-18] MEDS ORDERED: OXYCODONE-ACETAMINOPHEN 5-325 MG TABLET PO PRN ×2 (14:19)
[2017-02-18] MEDS ORDERED: MORPHINE SULFATE 10 MG/ML INJ IV PRN (14:19)
[2017-02-18] MEDS ORDERED: LIDOCAINE 1% INJ-PF (10 MG/ML) 30 ML SDV INJ ONE ×2 (14:24)
[2017-02-18] MEDS ORDERED: LIDOCAINE 1% INJ-PF (10 MG/ML) 30 ML SDV ONE (15:11)
[2017-02-18] MEDS: FENTANYL CITRATE INJ/PF 100 MCG/2 ML AMPUL ONE ×2 (15:17→15:28)
--- NOTE | 2017-02-18 15:51 | RADIOLOGY REPORT (SQ) ---
EXAM DESCRIPTION: L SPINE 2 VIEWS COMPLETED DATE/TIME: 02/18/2017 3:30 pm REASON FOR STUDY: KYPHOPLASTY L1 ASSISTED W/ FLUORO IN OR N39.0 URINARY TRACT INFECTION, SITE NOT S PECIFIED R10.9 UNSPECIFIED ABDOMINAL PAIN COMPARISON: None. FLUOROSCOPY TIME: 1.9 minutes 14 images saved to PACS. TECHNIQUE: Intra-operative images acquired during surgical procedure to evaluate progress. NUMBER OF IMAGES: 14 images LIMITATIONS: None. FINDINGS: Fluoroscopic images were obtained during performance of a kyphoplasty at the L1 level. IMPRESSION: IMAGE(S) OBTAINED DURING PROCEDURE. COMMENT: Quality ID [id number]: Final reports for procedures using fluoroscopy that document radiation exp osure indices, or exposure time and number of fluorographic images (if radiation exposure indices are not available) Please consult full operative report of the attending physician for description of the procedure. TECHNICAL DOCUMENTATION: JOB ID: [id number] [employer]- All Rights Reserved
--- NOTE | 2017-02-18 15:51 | RADIOLOGY REPORT (SQ) ---
EXAM DESCRIPTION: NO CHG FLUORO COMPLETE DATE/TIME: 02/18/2017 3:30 pm REASON FOR STUDY: KYPHOPLASTY L1 ASSISTED W/ FLUORO IN OR N39.0 URINARY TRACT INFECTION, SITE NOT S PECIFIED R10.9 UNSPECIFIED ABDOMINAL PAIN FINDINGS: Please see combined report for performance of procedure and radiologic supervision and int erpretation. IMPRESSION: Please see combined report for performance of procedure and radiologic supervision and i nterpretation.
--- NOTE | 2017-02-18 16:01 | OPERATIVE REPORT E ---
Operative Report NAME: BRITTNEY SANDERS : 1930 AGE: 87Y DATE OF SURGERY: 02/14/2017 ROOM: 207 PREOPERATIVE DIAGNOSIS: L1 vertebral compression fracture. POSTOPERATIVE DIAGNOSIS: L1 vertebral compression fracture. PROCEDURE PERFORMED: Percutaneous balloon kyphoplasty of the L1 vertebral body by a bipedicular approach. OPERATIVE FINDINGS: Excellent spread of methylmethacrylate cement in the L1 vertebral body without extravasation. SURGEON: BHUPENDRA LYNNE M.D. SPECIMENS REMOVED: None. ESTIMATED BLOOD LOSS: 5 mL. ANTIBIOTICS: Ancef 1 gram given perioperatively. INTRAVENOUS FLUIDS: 600 mL of IV crystalloid solution given. ANESTHESIA: Local anesthesia with monitored anesthesia care. INDICATIONS: The patient is a pleasant 87-year-old female who suffered a vertebral compression fracture a number of weeks back. She has had severe mid back pain. She was initially scheduled for kyphoplasty last week, but had a florid urinary tract infection. She has been since admitted to the hospital and had IV antibiotics with clearance of said urinary tract infection. We have agreed to proceed with kyphoplasty today. OPERATIVE DETAIL: Risks and benefits were explained to the patient and family in detail, including, but not limited to, bleeding, bruising, infection, injury to nerves, arteries, veins, loss of bowel or bladder function, paralysis, and potentially even . Also failure to ameliorate pain. The patient expressed understanding and agreed to proceed. The patient was accompanied by Anesthesia to the operative suite and placed in prone position. All pressure points were checked and padded. Standard ASA lines and monitors were applied. The patient was prepped and draped in sterile fashion using chlorhexidine gluconate solution as well as an Ioban drape and notably, there were 2 C-arms, 1 in lateral angulation and 1 in AP angulation that were draped sterilely into the field. After a timeout procedure were performed per [facility] standards, the patient was marked at the right L1 pedicle just lateral to the pedicle. The skin overlying planned incision site was anesthetized with 0.1% buffered lidocaine using a 25-gauge, 1-inch needle. Deeper tissues were then subsequently infiltrated with a 3.5-inch, 25-gauge spinal needle. Incision was made using a 12 blade scalpel. The shonna-tipped trocar was advanced through the soft tissue to make contact with the lateral margin of the right pedicle. Subsequently, a bevel-tipped trocar was utilized to advance through the pedicle taking great care to avoid any exit from the pedicular region and appropriate depth as well. Once a trocar had advanced through the posterior cortex, a drill was advanced through the trocar into the vertebral body, advanced to just shy of the anterior wall of the vertebral body. A balloon was subsequently inserted and inflated with notable expansion of balloon at very low PSI. Attention was then turned to the left pedicle, where the procedure was performed in the exact same fashion using the bevel-tipped trocar to advance through the vertebral body. After this was completed, a drill was advanced and path cleared for a balloon placement. A balloon was again inflated with notable roman catholic of the superior vertebral endplate height. The cement, apt, was mixed on the back table by operating room staff with help of the [employer] enrollment eligibility representative in the room. The introducer was advanced through the left pedicle after balloons were deflated and removed and notably, an introducer was placed in the right trocar. Methylmethacrylate cement was then injected in small increments, taking care to avoid any extravasation from the vertebral body. A total of 5.2 mL of methylmethacrylate cement was injected into the vertebral body all through the left pedicle. Excellent spread was noted across the midline to right and left sides and superiorly and laterally as well. There was, again, no extravasation of cement. The cement introducer was removed and a beveled introduced replaced. This was allowed to set for 2 minutes, after which time the trocars were removed. The patient tolerated the procedure well. The skin was cleansed and bandages applied. The patient was accompanied to the post-anesthesia recovery unit, where she will be monitored before returning to her floor bed. Hopefully, she will be good for discharge tomorrow. DICTATING PHYSICIAN: BHUPENDRA LYNNE M.D. [id number] PHY#: [id number] ID: [id number] JOB#: [id number] ACCT: [id number] cc:BHUPENDRA LYNNE M.D. >
[2017-02-18] MEDS: ATORVASTATIN CALCIUM 20 MG TABLET PO SCH (21:43)
[2017-02-18] MEDS: ACETAMINOPHEN 325 MG TABLET PO PRN (21:45)
[2017-02-18] MEDS: GABAPENTIN 100 MG CAPSULE PO SCH (21:47)
[2017-02-19] MEDS: LANSOPRAZOLE 15 MG TAB.RAP.DR PO SCH (05:32)
[2017-02-19] MEDS: HYDROMORPHONE HCL 2 MG TABLET PO PRN ×2 (05:33→14:30)
[2017-02-19] MEDS: ENOXAPARIN SODIUM INJ 30 MG/0.3 ML DISP.SYRIN SUBCUT SCH (09:12)
[2017-02-19] MEDS: TOLTERODINE TARTRATE 1 MG TABLET PO SCH (09:13)
[2017-02-19] MEDS: NYSTATIN 500000 UNIT/5 ML UDCUP PO SCH (09:13)
[2017-02-19] MEDS: DOCUSATE SODIUM 100 MG CAPSULE PO SCH (09:13)
[2017-02-19] MEDS: LEVOTHYROXINE SODIUM 0.05 MG TABLET PO SCH (09:13)
[2017-02-19] MEDS: AMLODIPINE BESYLATE 2.5 MG TABLET PO SCH (09:13)
[2017-02-19] MEDS: ALLOPURINOL 100 MG TABLET PO SCH (09:13)
[2017-02-19] MEDS: LANSOPRAZOLE 30 MG TAB.RAP.DR PO SCH (09:13)
[2017-02-19] MEDS: POLYETHYLENE GLYCOL 3350 POWDER 17 GM/1 PACKET PO SCH (09:13)
[2017-02-19] MEDS: METOPROLOL TARTRATE 50 MG TABLET PO SCH (09:13)
[2017-02-19] MEDS: SITAGLIPTIN PHOSPHATE 25 MG TABLET PO SCH (09:13)
[2017-02-19] MEDS: NYSTATIN CREAM 15 GM TP SCH (11:21)
--- NOTE | 2017-02-19 14:16 | PDOC DISCHARGE SUMMARY ---
General - Admit/Disc Date/PCP Admission Date/Primary Care Provider: 02/14/17 10:00 JUVENTINO MCCARTY MD Discharge Date: 02/19/17 - Discharge Diagnosis (1) Nausea and vomiting Is this a current diagnosis for this admission?: YesSummary: all resolved (2) Urinary tract infection Is this a current diagnosis for this admission?: YesSummary: Subsequently urine culture is negative patient's finished the IV antibiotic course (3) Compression fracture of first lumbar vertebra Is this a current diagnosis for this admission?: YesSummary: Chest post kyphoplasty and follow with the pain management (4) Anemia Is this a current diagnosis for this admission?: YesSummary: Currently stable (5) COPD (chronic obstructive pulmonary disease) Is this a current diagnosis for this admission?: YesSummary: Continues to current medications (6) GERD (gastroesophageal reflux disease) Is this a current diagnosis for this admission?: YesSummary: Currently on PPI (7) HTN (hypertension) Is this a current diagnosis for this admission?: YesSummary: Currently stable (8) History of colon cancer Summary: Patient see the oncology of the [facility] - Additional Information Resuscitation Status: Full Code Discharge Diet: Diabetic Home Medications: Allopurinol [Zyloprim 100 mg Tablet] 100 mg PO DAILY 02/14/17 Esomeprazole Magnesium [Nexium] 40 mg PO DAILY 02/14/17 Gabapentin [Neurontin 100 mg Capsule] 100 mg PO QHS 02/14/17 Hydromorphone HCl [Dilaudid 2 mg Tablet] 2 mg PO Q8HP PRN 02/14/17 Levothyroxine Sodium [Tirosint] 50 mcg PO DAILY 02/14/17 Metoprolol Tartrate [Lopressor 50 mg Tablet] 50 mg PO Q12 02/14/17 Nystatin [Mycostatin 896419 Unit/1 ml Susp 60 ml Btl] 4 ml PO DAILY 02/14/17 Nystatin [Mycostatin Cream 15 gm] 1 applic TP BID 02/14/17 Rosuvastatin Calcium [Crestor 10 mg Tablet] 10 mg PO DAILY 02/14/17 Sitagliptin Phosphate [Januvia 25 mg Tablet] 25 mg PO DAILY 02/14/17 Solifenacin Succinate [Vesicare] 5 mg PO DAILY 02/14/17 Hydromorphone HCl [Dilaudid 2 mg Tablet] 2 mg PO Q4HP PRN #0 tablet 02/19/17 History of Present Illness History of Present Illness: BRITTNEY SANDERS is a 87 year old female This is a 87-year-old female female with a history of the adenocarcinoma of the colon and a non-small carcinoma of the lung currently see a Dr. Schwartz and a polyps will every 6 month and also patient have a significant history of the sinus problems and currently saw the ENT recently have a compression fractures of the vertebra and currently see up Dr. Jaime unable to get the kyphoplasty because of the persistent infections in the urine.Patient was put on the Levaquin recently and patients complaining some nausea vomiting and not feeling wellIn patients back and forth by her son to brought to the office and at this point because of the weakness nausea vomiting and persistent infection and uncontrolled pain decided to admit in the hospital and the both patient and the son agree Patients denied any chest pain denied any shortness of the breath Hospital Course Hospital Course: This is a 87-year-old female with compression fracture lumbar spine see the pain managementAnd ongoing UTI with unable to keep it anything down came to the office decided to admit in the hospital. Patient was started on IV fluid and IV antibiotic and all culture was drawn and Dr. Watson was consulted Patient underwent for the kyphoplasty and currently doing very well Discussed with the son and the patient and patients do not want to go to the rehab patient at this point discharged home with the home health and physical therapy Discussed with the patient and the son about the fall precautions and follow with the pain management in 1 week Physical Exam Vital Signs: Temp Pulse Resp BP Pulse Ox 97.8 F 63 16 132/62 H 93 02/19/17 11:33 02/19/17 11:33 02/19/17 11:33 02/19/17 11:33 02/19/17 11:33 Intake & Output 02/18/17 02/19/17 02/20/17 06:59 06:59 06:59 Intake Total 548 1845 Output Total 200 203 Balance 348 1642 Weight 45 kg 46.2 kg General appearance: PRESENT: no acute distress, well-developed, well-nourished Head exam: PRESENT: atraumatic, normocephalic Eye exam: PRESENT: conjunctiva pink, EOMI, PERRLA. ABSENT: scleral icterus Ear exam: PRESENT: normal external ear exam Mouth exam: PRESENT: moist, tongue midline Neck exam: PRESENT: full ROM. ABSENT: carotid bruit, JVD, lymphadenopathy, thyromegaly Respiratory exam: PRESENT: clear to auscultation becca Cardiovascular exam: PRESENT: RRR. ABSENT: diastolic murmur, rubs, systolic murmur Pulses: PRESENT: normal dorsalis pedis pul, +2 pedal pulses bilateral Vascular exam: PRESENT: normal capillary refill GI/Abdominal exam: PRESENT: normal bowel sounds, soft. ABSENT: distended, guarding, mass, organolmegaly, rebound, tenderness Rectal exam: PRESENT: deferred Neurological exam: PRESENT: alert, awake, oriented to person, oriented to place , oriented to time, oriented to situation, CN II-XII grossly intact. ABSENT: motor sensory deficit Psychiatric exam: PRESENT: appropriate affect, normal mood. ABSENT: homicidal ideation, suicidal ideation Skin exam: PRESENT: dry, intact, warm. ABSENT: cyanosis, rash Results Laboratory Results: 02/17/17 07:35 02/18/17 05:55 02/14/17 12:10 Blood Blood Culture - Final NO GROWTH IN 5 DAYS 02/14/17 12:00 Blood Blood Culture - Final NO GROWTH IN 5 DAYS Impressions: Abdomen/Pelvis CT 02/14/17 00:00 IMPRESSION: 1. Compression fracture L1 which is a known finding. 2. No acute findings in the urinary tract. Fluoroscopy 02/18/17 00:00 IMPRESSION: Please see combined report for performance of procedure and radiologic supervision and interpretation. Lumbar Spine X-Ray 02/18/17 00:00 IMPRESSION: IMAGE(S) OBTAINED DURING PROCEDURE. Plan Time Spent: Less than 30 Minutes - Discussed with the patient and the son and discussed coordinate care with the pain management and no other concern today and patient's currently doing well patient's discharge home with the stable conditions
[2017-02-19 14:51] VITALS: BP 151/70
== END 2017-02-19 15:40 | disposition home health service (06) | DRG 983 ==
LOC: 2N 09:42 → OBSVTOIN 10:00
PROVIDERS: ADMIT Family Medicine; ATTEND Family Medicine
PROC: 0QU03JZ Supplement Lumbar Vertebra with Synthetic Substitute, Percutaneous Approach (ICD-10-PCS; 2017-02-18)
PROC: 0QS03ZZ Reposition Lumbar Vertebra, Percutaneous Approach (ICD-10-PCS; principal; 2017-02-18 14:00)
DX: N39.0 Urinary tract infection, site not specified (principal); S32.010S Wedge compression fracture of first lumbar vertebra, sequela; E78.5 Hyperlipidemia, unspecified; I10 Essential (primary) hypertension; E03.9 Hypothyroidism, unspecified; K21.9 Gastro-esophageal reflux disease without esophagitis; M10.9 Gout, unspecified; F03.90 Unspecified dementia, unspecified severity, without behavioral disturbance, psychotic disturbance, mood disturbance, and anxiety; D64.9 Anemia, unspecified; J44.9 Chronic obstructive pulmonary disease, unspecified; B96.5 Pseudomonas (aeruginosa) (mallei) (pseudomallei) as the cause of diseases classified elsewhere; Z85.038 Personal history of other malignant neoplasm of large intestine; Z86.010 Personal history of colon polyps; Z90.49 Acquired absence of other specified parts of digestive tract; Z90.710 Acquired absence of both cervix and uterus; Z87.891 Personal history of nicotine dependence; Z79.899 Other long term (current) drug therapy; Z88.3 Allergy status to other anti-infective agents; Z88.2 Allergy status to sulfonamides
CPT/HCPCS: 01936; 36415; 72100; 74176; 80048; 80053; 81001; 82962; 85025; 85027; 85610; 85730; 87040; 87070; 87086; G8978-GP; G8979-GP; J0690; J0692; J1650; J2250; J2704; J3010; J3490; J7030; J7614; Q9966

== ENCOUNTER → 2017-02-20 | Outpatient (CLI) | payer MEDICARE, OTHER ==
--- NOTE | 2017-02-20 17:06 | RADIOLOGY REPORT (SQ) ---
EXAM DESCRIPTION: LUMBAR SPINE COMPLETE COMPLETED DATE/TIME: 02/20/2017 4:55 pm REASON FOR STUDY: WEDGE COMPRESSION FRACTURE OF FIRST LUMBAR VERTEBRA, INIT S32.010A WEDGE COMPRESS ION FRACTURE OF FIRST LUMBAR VERTEBRA COMPARISON: None. NUMBER OF VIEWS: Five views including obliques. TECHNIQUE: AP, lateral, oblique, and sacral radiographic images acquired of the lumbar spine. LIMITATIONS: None. FINDINGS: MINERALIZATION: Normal. SEGMENTATION: Normal. No transitional anatomy. ALIGNMENT: Normal. VERTEBRAE: L1 kyphoplasty changes noted. No acute fractures. DISCS: Multilevel disc space narrowing with osteophytes. POSTERIOR ELEMENTS: Pedicles and facets are intact. No pars defect or posterior arch defects. Facet arthropathy is present. HARDWARE: None in the spine. PARASPINAL SOFT TISSUES: Normal. PELVIS: Intact as visualized. Prior sacroplasty. No fractures or worrisome bone lesions. SI joints intact. OTHER: No other significant finding. IMPRESSION: Prior kyphoplasty of L1. Prior sacroplasty noted. No acute fractures or traumatic subl uxation of the cervical spine. Multilevel degenerative changes throughout the spine. TECHNICAL DOCUMENTATION: JOB ID: [id number] [employer]- All Rights Reserved
== END ==
LOC: OD 16:15
PROVIDERS: ATTEND Pain Medicine Interventional Pain Medicine
DX: S32.010A Wedge compression fracture of first lumbar vertebra, initial encounter for closed fracture (principal); X58.XXXA Exposure to other specified factors, initial encounter
CPT/HCPCS: 72110

== ENCOUNTER 2017-02-23 06:39 | Emergency (ER) | payer MEDICARE, OTHER ==
--- NOTE | 2017-02-23 06:57 | ER Document Report ---
ED General - General Stated Complaint: ALTERED MENTAL STATUS Time Seen by Provider: 02/23/17 06:43 Mode of Arrival: Ambulatory Information source: Patient Notes: 87-year-old female recent diagnosis of wedge compression fracture requiring intervention as well as a UTI requiring IV antibiotics presents with complaints of confusion and altered mental status per son. Did give the patient pain medication 45 minutes prior to arrival TRAVEL OUTSIDE OF THE [place] IN LAST 30 DAYS: No - HPI Onset: Yesterday Onset/Duration: Sudden Quality of pain: Achy Severity: Mild Pain Level: 1 Associated symptoms: Weakness, Other Exacerbated by: Denies Relieved by: Denies Similar symptoms previously: Yes Recently seen / treated by doctor: Yes - Related Data Allergies/Adverse Reactions: ciprofloxacin HCl [From Cipro] Allergy (Verified 02/08/17 10:13) Diarrhea Sulfa (Sulfonamide Antibiotics) Allergy (Verified 02/08/17 10:13) Diarrhea sulfamethoxazole [From Septra] Allergy (Verified 02/08/17 10:13) Diarrhea trimethoprim [From Septra] Allergy (Verified 02/08/17 10:13) Diarrhea Past Medical History - Social History Smoking Status: Never Smoker Cigarette use (# per day): No Chew tobacco use (# tins/day): No Smoking Education Provided: No Family History: Reviewed & Not Pertinent - Past Medical History Cardiac Medical History: Reports: Hx Hypercholesterolemia, Hx Hypertension - on meds Denies: Hx Coronary Artery Disease, Hx Heart Attack Pulmonary Medical History: Denies: Hx Asthma, Hx Bronchitis, Hx COPD, Hx Pneumonia, Hx Tuberculosis Neurological Medical History: Denies: Hx Cerebrovascular Accident, Hx Seizures Endocrine Medical History: Reports: Hx Diabetes Mellitus Type 2 - "borderline", Hx Hypothyroidism Renal/ Medical History: Denies: Hx Peritoneal Dialysis Malignancy Medical History: Reports: Hx Colorectal Cancer, Hx Lung Cancer GI Medical History: Reports: Hx Gastroesophageal Reflux Disease Musculoskeltal Medical History: 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 Had surgery and "cement" put in her pelvis., Other - Surgery for lung cancer. Surgery for colon cancer.. Denies: Hx Pacemaker - Immunizations Hx Diphtheria, Pertussis, Tetanus Vaccination: No Hx Pneumococcal Vaccination: 09/09/11 Review of Systems - Review of Systems Notes: REVIEW OF SYSTEMS: CONSTITUTIONAL : Denies fever, chills, or sweats. Denies recent illness. EENT: Denies eye, ear, throat, or mouth pain or symptoms. Denies nasal or sinus congestion or discharge. Denies throat, tongue, or mouth swelling or difficulty swallowing. CARDIOVASCULAR: Denies chest pain. Denies palpitations or racing or irregular heart beat. Denies ankle edema. RESPIRATORY: Denies cough, cold, or chest congestion. Denies shortness of breath, difficulty breathing, or wheezing. GASTROINTESTINAL: Denies abdominal pain or distention. Denies nausea, vomiting , or diarrhea. Denies blood in vomitus, stools, or per rectum. Denies black, tarry stools. Denies constipation. GENITOURINARY: Denies difficulty urinating, painful urination, burning, frequency, blood in urine, or discharge. FEMALE GENITOURINARY: Denies vaginal bleeding, heavy or abnormal periods, irregular periods. Denies vaginal discharge or odor. MUSCULOSKELETAL: Admits to back pain HEMATOLOGIC : Denies easy bruising or bleeding. LYMPHATIC: Denies swollen, enlarged glands. NEUROLOGICAL: Admits to generalized weakness confusion PSYCHIATRIC: Denies anxiety or stress. Denies depression, suicidal ideation, or homicidal ideation. PHYSICAL EXAMINATION: GENERAL: Elderly frail-appearing female HEAD: Atraumatic, normocephalic. EYES: Pupils equal round and reactive to light, extraocular movements intact, conjunctiva are normal. ENT: Nares patent, oropharynx clear without exudates. Moist mucous membranes. NECK: Normal range of motion, supple without lymphadenopathy LUNGS: Breath sounds clear to auscultation bilaterally and equal. No wheezes rales or rhonchi. HEART: Regular rate and rhythm without murmurs ABDOMEN: Soft, nontender, nondistended abdomen. No guarding, no rebound. No masses appreciated. Female : deferred Musculoskeletal: Normal range of motion, no pitting or edema. No cyanosis. NEUROLOGICAL: Patient is able to move her extremities, GCS is 15 however she is mildly confused PSYCH: Normal mood, normal affect. SKIN: Warm, Dry, normal turgor, no rashes or lesions noted. ALL OTHER SYSTEMS REVIEWED AND NEGATIVE. Dictation was performed using [employer] recognition software Physical Exam - Vital signs Vitals: Temp Pulse Resp BP Pulse Ox 97.4 F 74 24 H 136/65 H 92 02/23/17 06:40 02/23/17 06:40 02/23/17 06:40 02/23/17 06:40 02/23/17 06:40 Course - Re-evaluation Re-evalutation: 02/23/17 07:00 Patient's altered mental status may be secondary to narcotic use versus infectious process, she is afebrile at this time lab work is pending 02/23/17 09:20 lab work notes no acute abnormality , i spoke with dr null who believes it is pain medication related which I agree 02/23/17 10:29 pt is now alert oriented , I agree that it is narcotic related, son agrees as well will dc home to follow up with Dr Null After performing a Medical Screening Examination, I estimate there is LOW risk for INTRACRANIAL HEMORRHAGE, ISCHEMIC CVA, MALIGNANT DYSRHYTHMIA, ACUTE CORONARY SYNDROME, MENINGITIS, PULMONARY EMBOLISM, or SEPSIS thus I consider the discharge disposition reasonable. I have reevaluated this patient multiple times and no significant life threatening changes are noted. The patient and I have discussed the diagnosis and risks, and we agree with discharging home with close follow-up with the understanding that symptoms and presentations can change. We also discussed returning to the Emergency Department immediately if new or worsening symptoms occur. We have discussed the symptoms which are most concerning (e.g., changing or worsening pain, weakness, vomiting, fever) that necessitate immediate return. - Vital Signs Vital signs: Temp Pulse Resp BP Pulse Ox 97.4 F 74 19 136/65 H 93 02/23/17 06:40 02/23/17 06:40 02/23/17 10:00 02/23/17 06:52 02/23/17 10:00 - Laboratory Result Diagrams: 02/23/17 07:05 02/23/17 07:05 Laboratory results interpreted by me: 02/23/17 02/23/17 02/23/17 07:05 07:05 08:30 RBC 3.67 L MCV 101 H RDW 15.1 H Seg Neutrophils % 79.3 H Lymphocytes % 11.6 L Sodium 135.0 L Chloride 97 L Glucose 134 H Alkaline Phosphatase 173 H Albumin 3.0 L Urine Protein 100 H - Diagnostic Test Radiology reviewed: Image reviewed, Reports reviewed Discharge - Discharge Clinical Impression: Transient alteration of awareness Back pain Qualifiers: Back pain location: low back pain Chronicity: chronic Back pain laterality: bilateral Sciatica presence: without sciatica Qualified Code(s): M54.5 - Low back pain; G89.29 - Other chronic pain Condition: Stable Disposition: HOME, SELF-CARE Instructions: Altered Mental Status ([facility]) Referrals: JUVENTINO NULL MD [Primary Care Provider] - Follow up tomorrow
[2017-02-23 07:25] LABS: ABSOLUTE EOSINOPHILS # (AUTO) 0.1 10^3/uL (0.0-0.6); ABSOLUTE LYMPHOCYTES (AUTO) 0.5 10^3/uL (0.5-4.7); ABSOLUTE MONOCYTES (AUTO) 0.3 10^3/uL (0.1-1.4); ABSOLUTE NEUT (AUTO) 3.5 10^3/uL (1.7-8.2); BASOPHILS % (AUTO) 0.6 % (0-2); EOSINOPHILS % (AUTO) 2.2 % (0-6); HEMATOCRIT 37.1 % (36.0-47.0); HGB HCT DIFFERENCE -1.1; LYMPHOCYTES % (AUTO) 11.6 % (13-45); MEAN CORPUSCULAR HEMOGLOBIN 32.8 pg (27.0-33.4); MEAN CORPUSCULAR HGB CONC 32.4 g/dL (32.0-36.0); MEAN CORPUSCULAR VOLUME 101 fl (80-97); MONOCYTES % (AUTO) 6.3 % (3-13); RED BLOOD COUNT 3.67 10^6/uL (3.72-5.28); RED CELL DISTRIBUTION WIDTH 15.1 % (11.5-14.0); SEGMENTED NEUTROPHILS % (AUTO) 79.3 % (42-78); WHITE BLOOD COUNT 4.5 10^3/uL (4.0-10.5)
--- NOTE | 2017-02-23 07:29 | RADIOLOGY REPORT (SQ) ---
EXAM DESCRIPTION: CHEST SINGLE VIEW COMPLETED DATE/TIME: 02/23/2017 7:18 am REASON FOR STUDY: altered post surgical COMPARISON: 01/18/2017. EXAM PARAMETERS: NUMBER OF VIEWS: One view. TECHNIQUE: Single frontal radiographic view of the chest acquired. RADIATION DOSE: NA LIMITATIONS: None. FINDINGS: LUNGS AND PLEURA: Moderate interstitial markings. MEDIASTINUM AND HILAR STRUCTURES: No masses. Contour normal. HEART AND VASCULAR STRUCTURES: Heart normal in size. Normal vasculature. BONES: Right upper posterior rib deformities and left mid hemithoracic rib deformity, stable. Verteb roplasty at the thoracolumbar junction. Clips of this line the mediastinum. Bilateral suture material. OTHER: No other significant finding. IMPRESSION: No significant interval change. TECHNICAL DOCUMENTATION: JOB ID: [id number]
[2017-02-23 07:46] LABS: ALANINE AMINOTRANSFERASE 27 U/L (9-52); ALKALINE PHOSPHATASE 173 U/L (38-126); ANION GAP 8 (5-19); ASPARTATE AMINO TRANSFERASE 31 U/L (14-36); BILIRUBIN,DIRECT 0.4 mg/dL (0.0-0.4); BILIRUBIN,TOTAL 0.6 mg/dL (0.2-1.3); BLOOD UREA NITROGEN 15 mg/dL (7-20); CALCIUM 9.3 mg/dL (8.4-10.2); CARBON DIOXIDE 30 mmol/L (22-30); CHLORIDE 97 mmol/L (98-107); CREATININE RESULT 0.76 mg/dL (0.52-1.25); GLUCOSE 134 mg/dL (75-110); POTASSIUM 4.5 mmol/L (3.6-5.0); TOTAL PROTEIN 6.4 g/dL (6.3-8.2)
[2017-02-23 08:15] LABS: VENOUS BLOOD BASE EXCESS 4.8 mmol/L; VENOUS BLOOD HCO3 31.1 mmol/L (20-32); VENOUS BLOOD PH 7.4 (7.30-7.42)
[2017-02-23 09:07] LABS: APPEARANCE,URINE CLEAR; BILIRUBIN,URINE NEGATIVE (NEGATIVE); GLUCOSE, URINE NEGATIVE (NEGATIVE); KETONES,URINE NEGATIVE (NEGATIVE); LEUKOCYTE ESTERASE,URINE NEGATIVE (NEGATIVE); NITRITE,URINE NEGATIVE (NEGATIVE); PROTEIN,URINE 100 mg/dL (NEGATIVE); URINE SPECIFIC GRAVITY 1.006; UROBILINOGEN,URINE NEGATIVE mg/dL (<2.0)
[2017-02-23 11:18] VITALS: BP 149/65
== END 2017-02-23 11:20 | disposition home or self-care (01) ==
LOC: ER 06:39
DX: R41.82 Altered mental status, unspecified (principal); M54.5 Low back pain; G89.29 Other chronic pain
CPT/HCPCS: 36415; 51702; 71010; 80053; 81001; 82803; 83605; 85025; 85610; 87040; 87086; 99285

== ENCOUNTER → 2017-04-08 | Outpatient (CLI) | payer MEDICARE, OTHER ==
--- NOTE | 2017-04-08 14:10 | RADIOLOGY REPORT (SQ) ---
EXAM DESCRIPTION: LUMBAR SPINE COMPLETE COMPLETED DATE/TIME: 04/08/2017 9:33 am REASON FOR STUDY: LOW BACK PAIN M54.5 LOW BACK PAIN COMPARISON: 02/20/2017 NUMBER OF VIEWS: Five views including obliques. TECHNIQUE: AP, lateral, oblique, and sacral radiographic images acquired of the lumbar spine. LIMITATIONS: None. FINDINGS: MINERALIZATION: Normal. SEGMENTATION: Normal. No transitional anatomy. ALIGNMENT: Minimal retropulsion L1 related to compression. VERTEBRAE: Post vertebroplasty L1 and sacrum. Interval development of mild to moderate compression L 2 since the previous study. Minimal compression along the inferior cortical endplate of T12 since th e last study. DISCS: Preserved height. No significant osteophytes or end plate irregularity. POSTERIOR ELEMENTS: Pedicles and facets are intact. No pars defect or posterior arch defects. HARDWARE: None in the spine. PARASPINAL SOFT TISSUES: Normal. PELVIS: Intact as visualized. No fractures or worrisome bone lesions. SI joints intact. OTHER: No other significant finding. IMPRESSION: Status post kyphoplasty L1 and sacrum. Interval development of moderate compression of L2 and mild compression along the inferior cortical endplate T12 since the previous study. TECHNICAL DOCUMENTATION: JOB ID: [id number] [employer]- All Rights Reserved
== END ==
LOC: OD 09:01
PROVIDERS: ATTEND Physician Assistant
DX: M54.5 Low back pain (principal)
CPT/HCPCS: 72110

== ENCOUNTER → 2017-04-09 | Outpatient (CLI) | payer MEDICARE, OTHER ==
--- NOTE | 2017-04-09 12:46 | RADIOLOGY REPORT (SQ) ---
EXAM DESCRIPTION: MRI LUMBAR SPINE WITHOUT COMPLETED DATE/TIME: 04/09/2017 11:55 am REASON FOR STUDY: WEDGE COMPRESSION FRACTURE OF T11-T12 S22.080A WEDGE COMPRESSION FRACTURE OF T11- T12 VERTEBRA, INI S32.020A WEDGE COMPRESSION FRACTURE OF SECOND LUMBAR VERTEBR COMPARISON: X-rays dated 04/08/2017 and 02/20/2017. MRI dated 02/02/2017. TECHNIQUE: Sagittal and Axial imaging includes T1, T2, STIR and gradient echo sequences. Coronal T2/ HASTE imaging. LIMITATIONS: None. FINDINGS: VISUALIZED UPPER ABDOMEN: Limited evaluation. No acute or suspicious findings suggested. SEGMENTATION: No transitional anatomy. The lowest well-developed disc space is labeled L5-S1. ALIGNMENT: 3 mm anterolisthesis of L4 on L5. VERTEBRAE: Old wedge compression fracture of L1 with kyphoplasty. New wedge compression fracture of L2 with 50-60% loss of height. Mild compression deformity involving the inferior endplate of T12. BONE MARROW: Mild marrow edema related to compression fractures of T12 and L2. No marrow replacement . DISC SIGNAL: Mild decreased height and signal. POSTERIOR ELEMENTS: Generally intact. No pars defect evident. HARDWARE: None in the spine. CORD AND CONUS: Normal in size and signal intensity. Conus at the appropriate level. SOFT TISSUES: No aortic aneurysm seen. No bulky retroperitoneal adenopathy or mass. No paraspinal mas s or fluid. L1-L2: Stable mild narrowing of the central canal secondary to the previous vertebral compression fra cture. Facet arthropathy. Bilateral foraminal narrowing. L2-L3: Minimal diffuse posterior disc bulge. Mild facet arthropathy. No significant spinal stenosis or exit foraminal stenosis. L3-L4: Mild diffuse posterior bulge. Moderate -severe facet arthropathy. Mild spinal stenosis and e xit foraminal stenosis. L4-L5: Diffuse posterior bulging. Severe facet arthropathy. Moderate spinal stenosis and mild-moder ate exit foraminal stenosis. L5-S1: Mild diffuse posterior bulge. Moderate facet arthropathy. No significant spinal stenosis or exit foraminal stenosis. LOWER THORACIC: Incompletely imaged. Mild posterior disc bulge and facet arthropathy at T11-T12 and T12-L1. No significant spinal stenosis. SACRUM: Visualized upper sacrum intact. OTHER: No other significant findings. IMPRESSION: 1. SUBACUTE COMPRESSION FRACTURES OF T12 AND L1 DESCRIBED ABOVE. THESE HAVE DEVELOPED SINCE 7. 2. STABLE OLD COMPRESSION FRACTURE AND KYPHOPLASTY OF L 1. 3. 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 STABLE CHRONIC DEGENERATIVE CHANGES DESCRIBED. TECHNICAL DOCUMENTATION: JOB ID: [id number] [employer] All Rights Reserved
== END ==
LOC: RAD 10:39
PROVIDERS: ATTEND Pain Medicine Interventional Pain Medicine
DX: S22.080D Wedge compression fracture of T11-T12 vertebra, subsequent encounter for fracture with routine healing (principal); S32.020D Wedge compression fracture of second lumbar vertebra, subsequent encounter for fracture with routine healing; X58.XXXD Exposure to other specified factors, subsequent encounter
CPT/HCPCS: 72148

== ENCOUNTER → 2017-04-10 | Outpatient (CLI) | payer MEDICARE, OTHER ==
--- NOTE | 2017-04-10 10:05 | RADIOLOGY REPORT (SQ) ---
EXAM DESCRIPTION: BARIUM SWALLOW PHARYNX ONLY COMPLETED DATE/TIME: 04/10/2017 8:48 am REASON FOR STUDY: DYSPHAGIA (R13.10) R13.10 DYSPHAGIA, UNSPECIFIED COMPARISON: BARIUM SWALLOW 08/08/2012 TECHNIQUE: Under fluoroscopic guidance, patient ingested effervescent granules followed by thick and thin barium. Fluoroscopic spot images and routine radiographic images acquired and stored on PACS. 12 MM BARIUM TABLET GIVEN: Yes. Mild delay at the GE junction for approximately 1.5 minutes before eventually passing into the stomac h. LIMITATIONS: None. FLUOROSCOPY TIME: FLUORO TIME: 46 seconds 8 fluoroscopy images saved to PACS. FINDINGS: NEUROMUSCULAR COORDINATION OF SWALLOW: Trace tracheal aspiration with thin liquids by stra w. ESOPHAGEAL MOTILITY: Prominent tertiary contractions noted throughout the mid and distal esophagus. Disorganized esophageal motility similar in appearance to previous barium swallow. No significant de lay in the passage of barium. ESOPHAGEAL MUCOSA: Normal mucosa without masses or ulceration. Mild smooth narrowing in the proximal thoracic esophagus secondary to prominent aortic arch. GASTRO-ESOPHAGEAL JUNCTION: No hiatal hernia or reflux. NON-GI TRACT STRUCTURES: No significant finding. OTHER: Previous kyphoplasty at L1 is noted. IMPRESSION: 1. MODERATE ESOPHAGEAL DYSMOTILITY RESULTING AND MILD DELAY IN PASSAGE OF 12 MM BARIUM TABLET ABOVE. NO SIGNIFICANT DELAY IN THE PASSAGE OF BARIUM. NO STRICTURES. SIMILAR FINDINGS CO MPARED TO PREVIOUS BARIUM SWALLOW 08/08/2012. COMMENT: Quality ID [id number]: Final reports for procedures using fluoroscopy that document radiation exp osure indices, or exposure time and number of fluorographic images (if radiation exposure indices are not available) TECHNICAL DOCUMENTATION: JOB ID: [id number] [email or web address] All Rights Reserved
== END ==
LOC: RAD 07:26
PROVIDERS: ATTEND Physician Assistant
DX: K22.4 Dyskinesia of esophagus (principal)
CPT/HCPCS: 74210